=== PATIENT | female | born 1995 | race Hispanic/Latino ===

== ENCOUNTER 2022-08-31 18:16 | Emergency (ER) | payer OTHER ==
--- OUTSIDE RECORDS SUMMARY | 2022-08-31 18:22 | XMS REPORT | Continuity of Care Document ---
:1995 [facility] Organization [facility] t Address [address] [place] [address] Support Name Relationship Address Phone ARMEN DUMONT Unavailable [id number] [place] [address] ARMEN DUMONT Unavailable [address] [phone] 1 [address] [place] [address] No, Contact Unavailable Unavailable J Carlos Shima Parent [address] [place] [address] [place] [address] HIRO BUFFER CHROME, REJI Primary Care Physician [address] [phone] [place] [address] MARCO MAR MD CHONG Emergency Provider [address] [facility] [address] SHEIKH ZAID, LEV Willingham Emergency Provider [facility] [phone] [address] [place] [address] NIKKI MCFADDEN MD Emergency Provider [address] [phone] [place] [address] ARELIS SWAIN MD Emergency Provider [address] [place] [address] MATTY MATSON JR Attending Provider [address] [facility] [place] [address] [place] [address] IVETH SANDHU MD Emergency Provider [address] [facility] [address] [place] [address] ARPITA RAY MD Emergency Provider [address] [place] [address] YOHANNES CEDENO MD Emergency Provider [address] [phone] [place] [address] TONY GIFFORD MD Attending Provider [address] [phone] [place] [address] PHYSICIAN, NO Primary Care Physician Unavailable UnavailDO LEON Phillips Emergency Provider [address] [facility] [email or web address] [id number] MD EDNA IRIZARRY Emergency Provider Unavailable Unavailable MD ARELIS SWAIN Emergency Provider [address] [place] [phone] MD MAYA ORTEZ Emergency Provider [address] [phone] [place] [phone] MD GIOVANNA ASHLEY Emergency Provider [email or web address] [address] DO Radha MARTIN Primary Care Physician [address] [place] [id number] MD GIOVANNY DIMAS Emergency Provider [address] [place] [phone] MD TINO MARTÍNEZ Emergency Provider [address] [place] [id number] Care Team Providers Name Role Phone JADE VOGT Primary Care Physician Unavailable LILLI VILLANUEVA Attending Clinician Unavailable Jonathan_Dee Attending Clinician Unavailable MONISHA BEGUM Attending Clinician Unavailable GIOVANNY DIMAS Attending Clinician Unavailable Page_Parker Attending Clinician Unavailable Abel MAR, Theron Wise Attending Clinician TINO MARTÍNEZ Attending Clinician Unavailable DR JADE VOGT Attending Clinician Unavailable [phone] Attending Clinician Unavailable JADE VOGT Attending Clinician Unavailable GIOVANNA ASHLEY Attending Clinician Unavailable ARELIS SWAIN Attending Clinician Unavailable Radha Turner Attending Clinician Unavailable Immanuel Shanks Attending Clinician Unavailable MAYA ORTEZ Attending Clinician Unavailable CHONG LARA Attending Clinician Unavailable EDNA GEORGE Attending Clinician Unavailable ROC Attending Clinician Unavailable LEON ARZATE Attending Clinician Unavailable RADHA OAKES Attending Clinician Unavailable NIKKI MCFADDEN Attending Clinician Unavailable TONY GIFFORD Attending Clinician Unavailable IVETH SANDHU Attending Clinician Unavailable YOHANNES CEDENO Attending Clinician Unavailable MICHELLE MONTES Attending Clinician Unavailable ARPITA RAY Attending Clinician Unavailable CARISSA DENSON Attending Clinician Unavailable MATTY MATSON Attending Clinician Unavailable LEV KEE Attending Clinician Unavailable ANUSHA GRIFFIN Attending Clinician Unavailable BRADLY CRUZ Attending Clinician Unavailable REJI BOSCH Attending Clinician Unavailable SUNITHA WOLF Attending Clinician Unavailable MARIA INES GARNER Attending Clinician Unavailable RUBEN JORDAN Attending Clinician Unavailable JESUS MARTIN Attending Clinician Unavailable RANDALL SPENCE Attending Clinician Unavailable MAGALY DAMON Attending Clinician Unavailable SOL VALDEZ Attending Clinician Unavailable LEONARDO VALENTIN Attending Clinician Unavailable RENETTA BATISTA Attending Clinician Unavailable FRANCY DAMON Attending Clinician Unavailable Troy PARK Attending Clinician Unavailable VIPIN ANDRADE Attending Clinician Unavailable JONH RODRIGUEZ Attending Clinician Unavailable CARLYLE ZAPATA Attending Clinician Unavailable [place] Admitting Clinician Unavailable Daron Admitting Clinician Unavailable DR JADE VOGT Admitting Clinician Unavailable Physician, No Primary or Family Admitting Clinician Unavailrob [email or web address]_[email or web address] Admitting Clinician Unavailable TONY GIFFORD Admitting Clinician Unavailable MTATY MATSON Admitting Clinician Unavailable RUBEN JORDAN Admitting Clinician Unavailable Payers Payer Name Policy Type Policy Number Effective Date Expiration Date Saritha kingsley LEATHAENE - AMBETTER [id number] FROM [facility] (EPO) CENTENE - AMBETTER [id number] 2021 FROM MANAGED 00:00:00 HEALTH SERVICES - MANAGED HEALTH SERVICES-IN (HMO) LEATHAENE - AMBETTER [id number] FROM [facility] ([place] [id number] 2014 00:00:00 [place] [id number] 2014 [place] (O) 00:00:00 Problems Condition Condition Condition Status Onset Resolution Last Treating Co mments Source Name Details Category Date Date Treatment Clinician Date Depressed Depressed Problem Active [facility] bipolar I Bipolar I 7-20 da disorder Disorder 00:00: [facility] in partial in Partial 00 al remission Remission [facility] Chronic Chronic Problem Active [facility] post-traum Post-traum 6-15 da atic atic 00:00: [facility] stress Stress 00 al disorder Disorder [facility] Cannabis Cannabis Problem Active [facility] abuse Abuse 5-20 da 00:00: [facility] Fibromyalg Fibromyalg Problem Active 2017-08 M atagor ia ia 2-04 da 00:00: [facility] Bipolar Bipolar Problem Active [facility] disorder Disorder 7-30 da 00:00: [facility] Idiopathic Idiopathic Disease Active M ethodi acute acute 5-27 st pancreatit pancreatit 00:00: Ho spita is is 00 l Acute Acute Disease Active Methodi renal renal 5- st failure failure 00:00: Hospita 00 l Dehydratio Dehydratio Disease Active M ethodi n n 5- st 00:00: Hospita 00 l Abdominal Abdominal Disease Active Met hodi pain pain 01-14 st 00:00: Hospita 00 l Lumbar Lumbar Disease Active [facility] radiculiti radiculiti 5-17 st s s 00:00: Hospita 00 l History of History of Disease Active M ethodi lumbar lumbar 5-17 st laminectom laminectom 00:00: Ho spita y for y for 00 l spinal spinal cord cord decompress decompress ion ion Personalit Personalit Problem Active M [facility] y disorder y Disorder da [facility] Allergies, Adverse Reactions, Alerts Allergy Allergy Status Severity Reaction(s) Onset Inactive Treating Comm ents Source Name Type Date Date Clinician No Known DA Active U 2020-08 [facility] No Known DA Active U 2020-08 [facility] No Known DA Active U [facility] No Known DA Active U [facility] All[facility]ie 9 [facility] No Known MA Active UNKNOWN [facility] Morphine Allergy Active Mild to Itching [facility] to moderate da substanc [facility] Family History Family Member Diagnosis Comments Start Date Stop Date Source Natural father No Known Problems Met [facility] Natural mother Cancer [facility] Natural mother Diabetes [facility] Natural mother Hypertension [facility] Natural mother Seizures [facility] Social History Social Habit Start Date Stop Date Quantity Comments Source History of Cigarette Smoker [facility] tobacco use Hospital Alcohol intake 2022-04-07 2022-04-07 [facility] 00:00:00 non-drinker of Hospital alcohol (finding) Tobacco use and 2017-12-30 2017-12-30 User of smokeless [facility] exposure 00:00:00 00:00:00 tobacco Hospital Alcohol Comment 2016-06-02 2016-06-02 0-1 [facility] 00:[facility]:00 Hospital Sex Assigned At [birth year] [facility] 00:[facility]:00 Hospital Smoking Status Start Date Stop Date Source Light Tobacco Smoker [facility] Smokes tobacco daily 2017-12-30 00:00:00 [facility] Medications Ordered Filled Start Stop Current Ordering Indication Dosage Frequency Signature Comments Components Source Medication Medication Date Date Medication? Clinician (SIG) Name Name keTOROlac Yes 10mg Q8H Take 1 Method i (TORadol) 5-22 tablet (10 st 10 mg 00:00: mg total) Hospita tablet 00 by mouth l every 8 (eight) hours as needed for moderate pain for up to 10 doses. keTOROlac 2017-0 Yes 10mg Q8H Take 1 [facility] i (TORadol) 5-22 tablet (10 st 10 mg 00:00: mg total) Hospita tablet 00 by mouth l every 8 (eight) hours as needed for moderate pain for up to 10 doses. keTOROlac 2018-0 Yes 10mg Q8H Take 1 [facility] i (TORadol) 5-22 tablet (10 st 10 mg 00:00: mg total) Hospita tablet 00 by mouth l every 8 (eight) hours as needed for moderate pain for up to 10 doses. keTOROlac 2018-0 Yes 10mg Q8H Take 1 Method i (TORadol) 5-22 tablet (10 st 10 mg 00:00: mg total) Hospita tablet 00 by mouth l every 8 (eight) hours as needed for moderate pain for up to 10 doses. keTOROlac 2018-0 Yes 10mg Q8H Take 1 [facility] i (TORadol) 5-22 tablet (10 st 10 mg 00:00: mg total) Hospita tablet 00 by mouth l every 8 (eight) hours as needed for moderate pain for up to 10 doses. keTOROlac 2018-0 Yes 10mg Q8H Take 1 [facility] i (TORadol) 5-22 tablet (10 st 10 mg 00:00: mg total) Hospita tablet 00 by mouth l every 8 (eight) hours as needed for moderate pain for up to 10 doses. keTOROlac 2018-0 Yes 10mg Q8H Take 1 [facility] i (TORadol) 5-22 tablet (10 st 10 mg 00:00: mg total) Hospita tablet 00 by mouth l every 8 (eight) hours as needed for moderate pain for up to 10 doses. keTOROlac 2018-0 Yes 10mg Q8H Take 1 Method i (TORadol) 5-22 tablet (10 st 10 mg 00:00: mg total) Hospita tablet 00 by mouth l every 8 (eight) hours as needed for moderate pain for up to 10 doses. keTOROlac 2018-0 Yes 10mg Q8H Take 1 Method i (TORadol) 5-22 tablet (10 st 10 mg 00:00: mg total) Hospita tablet 00 by mouth l every 8 (eight) hours as needed for moderate pain for up to 10 doses. keTOROlac 2018-0 Yes 10mg Q8H Take 1 Method i (TORadol) 5-22 tablet (10 st 10 mg 00:00: mg total) Hospita tablet 00 by mouth l every 8 (eight) hours as needed for moderate pain for up to 10 doses. cyclobenzap 2018-0 Yes 10mg Q8H Take 1 Meth le rine 5-06 tablet (10 st (FLEXERIL) 00:00: mg total) Ho spita 10 mg 00 by mouth l tablet every 8 (eight) hours as needed for muscle spasms for up to 20 doses. cyclobenzap 2018-0 Yes 10mg Q8H Take 1 Meth le rine 5-06 tablet (10 st (FLEXERIL) 00:00: mg total) Ho spita 10 mg 00 by mouth l tablet every 8 (eight) hours as needed for muscle spasms for up to 20 doses. cyclobenzap 2018-0 Yes 10mg Q8H Take 1 Meth le rine 5-06 tablet (10 st (FLEXERIL) 00:00: mg total) Ho spita 10 mg 00 by mouth l tablet every 8 (eight) hours as needed for muscle spasms for up to 20 doses. cyclobenzap 2018-0 Yes 10mg Q8H Take 1 Meth le rine 5-06 tablet (10 st (FLEXERIL) 00:00: mg total) Ho spita 10 mg 00 by mouth l tablet every 8 (eight) hours as needed for muscle spasms for up to 20 doses. cyclobenzap 2018-0 Yes 10mg Q8H Take 1 Meth le rine 5-06 tablet (10 st (FLEXERIL) 00:00: mg total) Ho spita 10 mg 00 by mouth l tablet every 8 (eight) hours as needed for muscle spasms for up to 20 doses. cyclobenzap 2018-0 Yes 10mg Q8H Take 1 Meth le rine 5-06 tablet (10 st (FLEXERIL) 00:00: mg total) Ho spita 10 mg 00 by mouth l tablet every 8 (eight) hours as needed for muscle spasms for up to 20 doses. cyclobenzap 2018-0 Yes 10mg Q8H Take 1 Meth le rine 5-06 tablet (10 st (FLEXERIL) 00:00: mg total) Ho spita 10 mg 00 by mouth l tablet every 8 (eight) hours as needed for muscle spasms for up to 20 doses. cyclobenzap 2018-0 Yes 10mg Q8H Take 1 Meth le rine 5-06 tablet (10 st (FLEXERIL) 00:00: mg total) Ho spita 10 mg 00 by mouth l tablet every 8 (eight) hours as needed for muscle spasms for up to 20 doses. cyclobenzap 2018-0 Yes 10mg Q8H Take 1 Meth le rine 5-06 tablet (10 st (FLEXERIL) 00:00: mg total) Ho spita 10 mg 00 by mouth l tablet every 8 (eight) hours as needed for muscle spasms for up to 20 doses. cyclobenzap 2018-0 Yes 10mg Q8H Take 1 Meth le rine 5-06 tablet (10 st (FLEXERIL) 00:00: mg total) Ho spita 10 mg 00 by mouth l tablet every 8 (eight) hours as needed for muscle spasms for up to 20 doses. OXcarbazepi 2016-08 Yes 1200mg Q.5D Take 1,200 Method[facility] ne 1-[address] (TRILEPTAL) 09:13: mouth 2 Hos jason 600 MG 22 (two) l tablet times a day. mirtazapine 2016-08 Yes 15mg QD Take 15 mg [facility]i (REMERON 1-[address] ALYSSIA-TAB) 15 09:13: nightly. Ho spita MG 22 l disintegrat ing tablet ALPRAZolam 2016-08 Yes .25mg QD Take 0.25 M ethodi (XANAX) 1-[address] 0.25 MG 09:13: mouth Hospita tablet 22 nightly as l needed for anxiety. metroNIDAZO 2016-08 Yes 500mg Q.[id number] Take 500 [facility] LE (FLAGYL) 1-10 [id number] mg by s t 500 MG 09:13: 3D mouth 3 Hospita tablet 22 (three) l times a day. vancomycin 2016-08 Yes 250mg Q.25D Take 250 M ethodi (VANCOCIN) 1-[address] 250 MG 09:13: mouth 4 Hospita capsule 22 (four) l times a day. OXcarbazepi 2016-08 Yes 1200mg Q.5D Take 1,200 Methodi ne 1-[address] (TRILEPTAL) 03:13: mouth 2 Hos jason 600 MG 22 (two) l tablet times a day. mirtazapine 2016-08 Yes 15mg QD Take 15 mg Method[facility] (REMERON 1-[address] ALYSSIA-TAB) 15 03:13: nightly. Ho spita MG 22 l disintegrat ing tablet ALPRAZolam 2016-08 Yes .25mg QD Take 0.25 M ethodi (XANAX) 1-[address] 0.25 MG 03:13: mouth Hospita tablet 22 nightly as l needed for anxiety. metroNIDAZO 2016-08 Yes 500mg Q.[id number] Take 500 Method[facility] LE (FLAGYL) 1-10 [id number] mg by s t 500 MG 03:13: 3D mouth 3 Hospita tablet 22 (three) l times a day. vancomycin 2016-08 Yes 250mg Q.25D Take 250 M ethodi (VANCOCIN) 1-[address] 250 MG 03:13: mouth 4 Hospita capsule 22 (four) l times a day. OXcarbazepi 2016-08 Yes 1200mg Q.5D Take 1,200 Methodi ne 1-[address] (TRILEPTAL) 03:13: mouth 2 Hos jason 600 MG 22 (two) l tablet times a day. mirtazapine 2016-08 Yes 15mg QD Take 15 mg [facility] (REMERON 1-[address] ALYSSIA-TAB) 15 03:13: nightly. Ho spita MG 22 l disintegrat ing tablet ALPRAZolam 2016-08 Yes .25mg QD Take 0.25 M ethodi (XANAX) 1-[address] 0.25 MG 03:13: mouth Hospita tablet 22 nightly as l needed for anxiety. metroNIDAZO 2016-08 Yes 500mg Q.[id number] Take 500 [facility] LE (FLAGYL) 1-10 [id number] mg by s t 500 MG 03:13: 3D mouth 3 Hospita tablet 22 (three) l times a day. vancomycin 2016-08 Yes 250mg Q.25D Take 250 M ethodi (VANCOCIN) 1-[address] 250 MG 03:13: mouth 4 Hospita capsule 22 (four) l times a day. OXcarbazepi 2016-08 Yes 1200mg Q.5D Take 1,200 Methodi ne 1-[address] (TRILEPTAL) 03:13: mouth 2 Hos jason 600 MG 22 (two) l tablet times a day. mirtazapine 2016-08 Yes 15mg QD Take 15 mg Method[facility] (REMERON 1-[address] ALYSSIA-TAB) 15 03:13: nightly. Ho spita MG 22 l disintegrat ing tablet ALPRAZolam 2016-08 Yes .25mg QD Take 0.25 M ethodi (XANAX) 1-[address] 0.25 MG 03:13: mouth Hospita tablet 22 nightly as l needed for anxiety. metroNIDAZO 2016-08 Yes 500mg Q.[id number] Take 500 Method[facility] LE (FLAGYL) 1-10 [id number] mg by s t 500 MG 03:13: 3D mouth 3 Hospita tablet 22 (three) l times a day. vancomycin 2016-08 Yes 250mg Q.25D Take 250 M ethodi (VANCOCIN) 1-[address] 250 MG 03:13: mouth 4 Hospita capsule 22 (four) l times a day. OXcarbazepi 2016-08 Yes 1200mg Q.5D Take 1,200 Methodi ne 1-[address] (TRILEPTAL) 03:13: mouth 2 Hos jason 600 MG 22 (two) l tablet times a day. mirtazapine 2016-08 Yes 15mg QD Take 15 mg Method[facility] (REMERON 1-[address] ALYSSIA-TAB) 15 03:13: nightly. Ho spita MG 22 l disintegrat ing tablet ALPRAZolam 2016-08 Yes .25mg QD Take 0.25 M ethodi (XANAX) 1-[address] 0.25 MG 03:13: mouth Hospita tablet 22 nightly as l needed for anxiety. metroNIDAZO 2016-08 Yes 500mg Q.54710897 Take 500 Method[facility] LE (FLAGYL) 1-10 [id number] mg by s t 500 MG 03:13: 3D mouth 3 Hospita tablet 22 (three) l times a day. vancomycin 2016-08 Yes 250mg Q.25D Take 250 M ethodi (VANCOCIN) 1-[address] 250 MG 03:13: mouth 4 Hospita capsule 22 (four) l times a day. OXcarbazepi 2016-08 Yes 1200mg Q.5D Take 1,200 Methodi ne 1-[address] (TRILEPTAL) 03:13: mouth 2 Hos jason 600 MG 22 (two) l tablet times a day. mirtazapine 2016-08 Yes 15mg QD Take 15 mg [facility] (REMERON 1-[address] ALYSSIA-TAB) 15 03:13: nightly. Ho spita MG 22 l disintegrat ing tablet ALPRAZolam 2016-08 Yes .25mg QD Take 0.25 M ethodi (XANAX) 1-[address] 0.25 MG 03:13: mouth Hospita tablet 22 nightly as l needed for anxiety. metroNIDAZO 2016-08 Yes 500mg Q.27708193 Take 500 Method[facility] LE (FLAGYL) 1-10 [id number] mg by s t 500 MG 03:13: 3D mouth 3 Hospita tablet 22 (three) l times a day. vancomycin 2016-08 Yes 250mg Q.25D Take 250 M ethodi (VANCOCIN) 1-[address] 250 MG 03:13: mouth 4 Hospita capsule 22 (four) l times a day. OXcarbazepi 2016-08 Yes 1200mg Q.5D Take 1,200 Methodi ne 1-[address] (TRILEPTAL) 03:13: mouth 2 Hos jason 600 MG 22 (two) l tablet times a day. mirtazapine 2016-08 Yes 15mg QD Take 15 mg Method[facility] (REMERON 1-[address] ALYSSIA-TAB) 15 03:13: nightly. Ho spita MG 22 l disintegrat ing tablet ALPRAZolam 2016-08 Yes .25mg QD Take 0.25 M ethodi (XANAX) 1-[address] 0.25 MG 03:13: mouth Hospita tablet 22 nightly as l needed for anxiety. metroNIDAZO 2016-08 Yes 500mg Q.[id number] Take 500 Methodi LE (FLAGYL) 1-10 [id number] mg by s t 500 MG 03:13: 3D mouth 3 Hospita tablet 22 (three) l times a day. vancomycin 2016-08 Yes 250mg Q.25D Take 250 M ethodi (VANCOCIN) 1-[address] 250 MG 03:13: mouth 4 Hospita capsule 22 (four) l times a day. OXcarbazepi 2016-08 Yes 1200mg Q.5D Take 1,200 Methodi ne 1-[address] (TRILEPTAL) 03:13: mouth 2 Hos jason 600 MG 22 (two) l tablet times a day. mirtazapine 2016-08 Yes 15mg QD Take 15 mg Methodi (REMERON 1-[address] ALYSSIA-TAB) 15 03:13: nightly. Ho spita MG 22 l disintegrat ing tablet ALPRAZolam 2016-08 Yes .25mg QD Take 0.25 M ethodi (XANAX) 1-[address] 0.25 MG 03:13: mouth Hospita tablet 22 nightly as l needed for anxiety. metroNIDAZO 2016-08 Yes 500mg Q.[id number] Take 500 Methodi LE (FLAGYL) 1-10 [id number] mg by s t 500 MG 03:13: 3D mouth 3 Hospita tablet 22 (three) l times a day. vancomycin 2016-08 Yes 250mg Q.25D Take 250 M ethodi (VANCOCIN) 1-[address] 250 MG 03:13: mouth 4 Hospita capsule 22 (four) l times a day. OXcarbazepi 2016-08 Yes 1200mg Q.5D Take 1,200 Methodi ne 1-[address] (TRILEPTAL) 03:13: mouth 2 Hos jason 600 MG 22 (two) l tablet times a day. mirtazapine 2016-08 Yes 15mg QD Take 15 mg Methodi (REMERON 1-[address] ALYSSIA-TAB) 15 03:13: nightly. Ho spita MG 22 l disintegrat ing tablet ALPRAZolam 2016-08 Yes .25mg QD Take 0.25 M ethodi (XANAX) 1-[address] 0.25 MG 03:13: mouth Hospita tablet 22 nightly as l needed for anxiety. metroNIDAZO 2016-08 Yes 500mg Q.[id number] Take 500 Methodi LE (FLAGYL) 1-10 [id number] mg by s t 500 MG 03:13: 3D mouth 3 Hospita tablet 22 (three) l times a day. vancomycin 2016-08 Yes 250mg Q.25D Take 250 M ethodi (VANCOCIN) 1-[address] 250 MG 03:13: mouth 4 Hospita capsule 22 (four) l times a day. OXcarbazepi 2016-08 Yes 1200mg Q.5D Take 1,200 Methodi ne 1-[address] (TRILEPTAL) 03:13: mouth 2 Hos jason 600 MG 22 (two) l tablet times a day. mirtazapine 2016-08 Yes 15mg QD Take 15 mg Methodi (REMERON 1-[address] ALYSSIA-TAB) 15 03:13: nightly. Ho spita MG 22 l disintegrat ing tablet ALPRAZolam 2016-08 Yes .25mg QD Take 0.25 M ethodi (XANAX) 1-[address] 0.25 MG 03:13: mouth Hospita tablet 22 nightly as l needed for anxiety. metroNIDAZO 2016-08 Yes 500mg Q.[id number] Take 500 Methodi LE (FLAGYL) 1-10 [id number] mg by s t 500 MG 03:13: 3D mouth 3 Hospita tablet 22 (three) l times a day. vancomycin 2016-08 Yes 250mg Q.25D Take 250 M ethodi (VANCOCIN) 1-[address] 250 MG 03:13: mouth 4 Hospita capsule 22 (four) l times a day. ondansetron 2016-08 Yes 4mg Q6H Take 1 Meth le ODT (ZOFRAN 0-11 tablet (4 st ODT) 4 MG 00:00: mg total) Hos jason disintegrat 00 by mouth l ing tablet every 6 (six) hours as needed for nausea or vomiting for up to 20 doses. ondansetron 2016-08 Yes 4mg Q6H Take 1 Meth le ODT (ZOFRAN 0-11 tablet (4 st ODT) 4 MG 00:00: mg total) Hos jason disintegrat 00 by mouth l ing tablet every 6 (six) hours as needed for nausea or vomiting for up to 20 doses. ondansetron 2016-08 Yes 4mg Q6H Take 1 Meth le ODT (ZOFRAN 0-11 tablet (4 st ODT) 4 MG 00:00: mg total) Hos jason disintegrat 00 by mouth l ing tablet every 6 (six) hours as needed for nausea or vomiting for up to 20 doses. ondansetron 2016-08 Yes 4mg Q6H Take 1 Meth le ODT (ZOFRAN 0-11 tablet (4 st ODT) 4 MG 00:00: mg total) Hos jason disintegrat 00 by mouth l ing tablet every 6 (six) hours as needed for nausea or vomiting for up to 20 doses. ondansetron 2016-08 Yes 4mg Q6H Take 1 Meth le ODT (ZOFRAN 0-11 tablet (4 st ODT) 4 MG 00:00: mg total) Hos jason disintegrat 00 by mouth l ing tablet every 6 (six) hours as needed for nausea or vomiting for up to 20 doses. ondansetron 2016-08 Yes 4mg Q6H Take 1 Meth le ODT (ZOFRAN 0-11 tablet (4 st ODT) 4 MG 00:00: mg total) Hos jason disintegrat 00 by mouth l ing tablet every 6 (six) hours as needed for nausea or vomiting for up to 20 doses. ondansetron 2017-1 Yes 4mg Q6H Take 1 Meth le ODT (ZOFRAN 0-11 tablet (4 st ODT) 4 MG 00:00: mg total) Hos jason disintegrat 00 by mouth l ing tablet every 6 (six) hours as needed for nausea or vomiting for up to 20 doses. ondansetron 2017-1 Yes 4mg Q6H Take 1 Meth le ODT (ZOFRAN 0-11 tablet (4 st ODT) 4 MG 00:00: mg total) Hos jason disintegrat 00 by mouth l ing tablet every 6 (six) hours as needed for nausea or vomiting for up to 20 doses. ondansetron 2017-1 Yes 4mg Q6H Take 1 Meth le ODT (ZOFRAN 0-11 tablet (4 st ODT) 4 MG 00:00: mg total) Hos jason disintegrat 00 by mouth l ing tablet every 6 (six) hours as needed for nausea or vomiting for up to 20 doses. ondansetron 2017-1 Yes 4mg Q6H Take 1 Meth le ODT (ZOFRAN 0-11 tablet (4 st ODT) 4 MG 00:00: mg total) Hos jason disintegrat 00 by mouth l ing tablet every 6 (six) hours as needed for nausea or vomiting for up to 20 doses. promethazin 2017-0 Yes 25mg Q6H Take 1 Meth le e 8-09 tablet (25 st (PHENERGAN) 00:00: mg total) H ospita 25 MG 00 by mouth l tablet every 6 (six) hours as needed for nausea or vomiting for up to 20 doses. promethazin 2017-0 Yes 25mg Q6H Take 1 Meth le e 8-09 tablet (25 st (PHENERGAN) 00:00: mg total) H ospita 25 MG 00 by mouth l tablet every 6 (six) hours as needed for nausea or vomiting for up to 20 doses. promethazin 2017-0 Yes 25mg Q6H Take 1 Meth le e 8-09 tablet (25 st (PHENERGAN) 00:00: mg total) H ospita 25 MG 00 by mouth l tablet every 6 (six) hours as needed for nausea or vomiting for up to 20 doses. promethazin 2017-0 Yes 25mg Q6H Take 1 Meth le e 8-09 tablet (25 st (PHENERGAN) 00:00: mg total) H ospita 25 MG 00 by mouth l tablet every 6 (six) hours as needed for nausea or vomiting for up to 20 doses. promethazin 2017-0 Yes 25mg Q6H Take 1 Meth le e 8-09 tablet (25 st (PHENERGAN) 00:00: mg total) H ospita 25 MG 00 by mouth l tablet every 6 (six) hours as needed for nausea or vomiting for up to 20 doses. promethazin 2017-0 Yes 25mg Q6H Take 1 Meth le e 8-09 tablet (25 st (PHENERGAN) 00:00: mg total) H ospita 25 MG 00 by mouth l tablet every 6 (six) hours as needed for nausea or vomiting for up to 20 doses. promethazin 2017-0 Yes 25mg Q6H Take 1 Meth le e 8-09 tablet (25 st (PHENERGAN) 00:00: mg total) H ospita 25 MG 00 by mouth l tablet every 6 (six) hours as needed for nausea or vomiting for up to 20 doses. promethazin 2017-0 Yes 25mg Q6H Take 1 Meth le e 8-09 tablet (25 st (PHENERGAN) 00:00: mg total) H ospita 25 MG 00 by mouth l tablet every 6 (six) hours as needed for nausea or vomiting for up to 20 doses. promethazin 2017-0 Yes 25mg Q6H Take 1 Meth le e 8-09 tablet (25 st (PHENERGAN) 00:00: mg total) [facility] 25 MG 00 by mouth l tablet every 6 (six) hours as needed for nausea or vomiting for up to 20 doses. promethazin 2017-0 Yes 25mg Q6H Take 1 Meth le e 8-09 tablet (25 st (PHENERGAN) 00:00: mg total) [facility] 25 MG 00 by mouth l tablet every 6 (six) hours as needed for nausea or vomiting for up to 20 doses. benztropine benztropine No 1 Q1D benztropin [place] 1 mg tablet 1 mg tablet e 1 mg da Take 1 Take 1 tablet [facility] tablet tablet Take 1 al every day every day tablet Hea lth by oral by oral every day Outr eac route in route in by oral h the the route in Program morning. morning. the morning. bupropion bupropion No bupropion [place] HCl XL 150 HCl XL 150 HCl XL 150 da mg 24 hr mg 24 hr mg 24 hr Epi scop tablet, tablet, tablet, al extended extended extended Hea lth release TK release TK release TK Outreac 1 T PO QD 1 T PO QD 1 T PO QD h Program buspirone buspirone No 1 BID buspirone [place] 10 mg 10 mg 10 mg da tablet Take tablet Take tablet [facility] 1 tablet 1 tablet Take 1 al twice a day twice a day tablet Health by oral by oral twice a Outrea c route with route with day by h meals. meals. oral route Progr am with meals. hydroxyzine hydroxyzine No 1 Q6H hydroxyzin [place] HCl 50 mg HCl 50 mg e HCl 50 d a tablet Take tablet Take mg tablet [facility] 1 tablet 1 tablet Take 1 al every 6 every 6 tablet Health hours by hours by every 6 Outr eac oral route oral route hours by h as needed. as needed. oral route Program as needed. hydroxyzine hydroxyzine No hydroxyzin [place] pamoate 50 pamoate 50 e pamoate da mg capsule mg capsule 50 mg [facility] capsule al Health Outreac h Program ibuprofen ibuprofen No ibuprofen [place] 600 mg 600 mg 600 mg da tablet tablet tablet [facility] ParaGard T ParaGard T No 1device ParaGard T [place] 380A 380 380A 380 (s) 380A 380 da square mm square mm square mm [facility] intrauterin intrauterin intrauteri al e device e device ne device He alth Take 1 Take 1 Take 1 Outreac device by device by device by h intrauterin intrauterin intrauteri Program e route. e route. ne route. quetiapine quetiapine No 1 Q1D quetiapine [place] 100 mg 100 mg 100 mg da tablet Take tablet Take tablet [facility] 1 tablet 1 tablet Take 1 al every day every day tablet Hea [facility]th by oral by oral every day Outr eac route at route at by oral h bedtime. bedtime. route at Pro gram bedtime. quetiapine quetiapine No 1 Q1D quetiapine [place] 25 mg 25 mg 25 mg da tablet Take tablet Take tablet [facility] 1 tablet 1 tablet Take 1 al every day every day tablet [facility]a [facility]th by oral by oral every day Outr eac route in route in by oral h the the route in Program morning. morning. the morning. tramadol 50 tramadol 50 No tramadol [place] mg tablet mg tablet 50 mg da tablet [facility] trazodone trazodone No 1 Q1D trazodone [place] 100 mg 100 mg 100 mg da tablet Take tablet Take tablet [facility] 1 tablet 1 tablet Take 1 al every day every day tablet [facility]a [facility]th by oral by oral every day Outr eac route at route at by oral h bedtime. bedtime. route at Pro gram bedtime. 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 coordinator Index) [facility] BP Systolic 2019-12-24 00:00:00 108 mm[Hg] [place] [facility] Body Weight 2019-12-24 00:00:00 138 [lb_av] [place] [facility] BP Diastolic 2019-12-10 00:00:00 60 mm[Hg] [place] [facility] Height 2019-12-10 00:00:00 64 [in_i] [place] [facility] BMI (Body Mass 2019-12-10 00:00:00 22.8 kg/m2 [facility] head start coordinator Index) [facility] BP Systolic 2019-12-10 00:00:00 96 mm[Hg] [place] [facility] Body Weight 2019-12-10 00:00:00 133 [lb_av] [place] [facility] BP Diastolic 2019-09-01 00:00:00 75 mm[Hg] [place] [facility] Height 2019-09-01 00:00:00 64 [in_i] [place] [facility] BMI (Body Mass 2019-09-01 00:00:00 22.5 kg/m2 [place] head start coordinator Index) [facility] BP Systolic 2019-09-01 00:00:00 110 mm[Hg] [place] [facility] Body Weight 2019-09-01 00:00:00 131 [lb_av] [place] [facility] BP Diastolic 2019-08-07 00:00:00 67 mm[Hg] [place] [facility] Height 2019-08-07 00:00:00 64 [in_i] [place] [facility] BMI (Body Mass 2019-08-07 00:00:00 22.8 kg/m2 [place] head start coordinator Index) [facility] BP Systolic 2019-08-07 00:00:00 101 mm[Hg] [place] [facility] Body Weight 2019-08-07 00:00:00 133 [lb_av] [place] [facility] BP Diastolic 2019-07-08 00:00:00 79 mm[Hg] [place] [facility] Height 2019-07-08 00:00:00 64 [in_i] [place] [facility] BMI (Body Mass 2019-07-08 00:00:00 22.7 kg/m2 [place] head start coordinator Index) [facility] BP Systolic 2019-07-08 00:00:00 113 mm[Hg] [place] [facility] Body Weight 2019-07-08 00:00:00 132 [lb_av] [place] [facility] BP Diastolic 2019-06-23 00:00:00 72 mm[Hg] [place] [facility] Height 2019-06-23 00:00:00 64 [in_i] [place] [facility] BMI (Body Mass 2019-06-23 00:00:00 [facility]3 [facility] BP Systolic 2019-06-23 00:00:00 129 mm[Hg] [place] [facility] Body Weight 2019-06-23 00:00:00 130 [lb_av] [place] [facility] BP Diastolic 2019-06-06 00:00:00 69 mm[Hg] [place] [facility] Height 2019-06-06 00:00:00 64 [in_i] [place] [facility] BMI (Body Mass 2019-06-06 00:00:00 22.5 kg/m2 [facility] head start coordinator Index) [facility] BP Systolic 2019-06-06 00:00:00 105 mm[Hg] [place] [facility] Body Weight 2019-06-06 00:00:00 131 [lb_av] [place] [facility] Body height 2022-04-07 17:41:00 157.5 cm [facility] Body weight 2022-04-07 17:41:00 53.071 kg [facility] BMI 2022-04-07 17:41:00 21.40 kg/m2 [facility] Systolic blood 2022-04-07 17:33:47 103 mm[Hg] [facility] pressure Diastolic blood 2022-04-07 17:33:47 74 mm[Hg] [facility] pressure Heart rate 2022-04-07 17:33:47 95 /min [facility] Body temperature 2022-04-07 17:33:47 37.5 It[facility] Respiratory rate 2022-04-07 17:33:47 16 /min [facility] Oxygen saturation in 2022-04-07 17:33:47 98 /min [facility] Arterial blood by Pulse oximetry Procedures Procedure Date / Time Performing Clinician Source Performed CT RENAL STONE PROTOCOL 2022-04-07 18:52:26 [facility] URINE CULTURE 2022-04-07 17:57:00 [facility] URINALYSIS SCREEN AND 2022-04-07 17:57:00 [facility] MICROSCOPY, WITH REFLEX TO CULTURE HCG QUALITATIVE, URINE 2022-04-07 17:57:00 [facility] SCREEN CBC WITH PLATELET AND 2022-04-07 17:55:00 [facility] DIFFERENTIAL BASIC METABOLIC PANEL 2022-04-07 17:55:00 [facility] ESTIMATED GFR 2022-04-07 17:55:00 [facility], transvaginal 2019-12-24 00:00:00 [facility] , transvaginal 2019-08-07 00:00:00 [facility] 2019-06-23 00:00[facility]00 [facility] Cholecystectomy 2016-08-27 00:00:00 [facility] Exploratory Lumbar 2015-08-27 00:00:00 [facility] Plan of Care Planned Activity Planned Date Details Comments Source Future Scheduled Test 2022-08-18 Pneumococcal Vaccine: [facility] 03:02:32 Pediatrics (0 to 5 Years) and At-Risk Patients (6 to 64 Years) (1 - PCV) [code = Pneumococcal Vaccine: Pediatrics (0 to 5 Years) and At-Risk Patients (6 to 64 Years) (1 - PCV)] Future Scheduled Test 2022-08-18 Hepatitis C screening [facility] 03:02:32 (procedure) [code = 515899098] Future Scheduled Test 2022-08-18 Screening for [facility] 03:02:32 malignant neoplasm of cervix (procedure) [code = 520385800] Future Scheduled Test 2022-08-18 COVID-19 VACCINE ([address] [place] [address] 03:02:32 Booster for Pfizer series) [code = COVID-19 VACCINE (3 - Booster for Pfizer series)] Future Scheduled Test 2022-08-18 INFLUENZA VACCINE [facility] 03:02:32 [code = INFLUENZA VACCINE] Future Scheduled Test 2022-08-18 Pneumococcal Vaccine: [facility] 03:02:32 Pediatrics (0 to 5 Years) and At-Risk Patients (6 to 64 Years) (1 - PCV) [code = Pneumococcal Vaccine: Pediatrics (0 to 5 Years) and At-Risk Patients (6 to 64 Years) (1 - PCV)] Future Scheduled Test 2022-08-18 Hepatitis C screening [facility] 03:02:32 (procedure) [code = [id number]] Future Scheduled Test 2022-08-18 Screening for [facility] 03:02:32 malignant neoplasm of cervix (procedure) [code = 993443902] Future Scheduled Test 2022-08-18 COVID-19 VACCINE ([address] [place] [address] 03:02:32 Booster for Pfizer series) [code = COVID-19 VACCINE (3 - Booster for Pfizer series)] Future Scheduled Test 2022-08-18 INFLUENZA VACCINE [facility] 03:02:32 [code = INFLUENZA VACCINE] Future Scheduled Test 2022-08-18 Pneumococcal Vaccine: [facility] 03:02:32 Pediatrics (0 to 5 Years) and At-Risk Patients (6 to 64 Years) (1 - PCV) [code = Pneumococcal Vaccine: Pediatrics (0 to 5 Years) and At-Risk Patients (6 to 64 Years) (1 - PCV)] Future Scheduled Test 2022-08-18 Hepatitis C screening [facility] 03:02:32 (procedure) [code = [id number]] Future Scheduled Test 2022-08-18 Screening for [facility] 03:02:32 malignant neoplasm of cervix (procedure) [code = 691899927] Future Scheduled Test 2022-08-18 COVID-19 VACCINE ([address] [place] [address] 03:02:32 Booster for Pfizer series) [code = COVID-19 VACCINE (3 - Booster for Pfizer series)] Future Scheduled Test 2022-08-18 INFLUENZA VACCINE [facility] 03:02:32 [code = INFLUENZA VACCINE] Future Scheduled Test 2022-06-30 HEPATITIS B VACCINES [facility] 04:56:39 (1 of 3 - 3-dose series) [code = HEPATITIS B VACCINES (1 of 3 - 3-dose series)] Future Scheduled Test 2022-06-30 Pneumococcal Vaccine: [facility] 04:56:39 Pediatrics (0 to 5 Years) and At-Risk Patients (6 to 64 Years) (1 - PCV) [code = Pneumococcal Vaccine: Pediatrics (0 to 5 Years) and At-Risk Patients (6 to 64 Years) (1 - PCV)] Future Scheduled Test 2022-06-30 Hepatitis C screening [facility] 04:56:39 (procedure) [code = 097043177] Future Scheduled Test 2022-06-30 Screening for [facility] 04:56:39 malignant neoplasm of cervix (procedure) [code = 072922809] Future Scheduled Test 2022-06-30 COVID-19 VACCINE (3 - [facility] 04:56:39 Booster for Pfizer series) [code = COVID-19 VACCINE (3 - Booster for Pfizer series)] Future Scheduled Test 2022-06-30 INFLUENZA VACCINE [facility] 04:56:39 [code = INFLUENZA VACCINE] Future Scheduled Test 2022-06-30 HEPATITIS B VACCINES [facility] 04:56:39 (1 of 3 - 3-dose series) [code = HEPATITIS B VACCINES (1 of 3 - 3-dose series)] Future Scheduled Test 2022-06-30 Pneumococcal Vaccine: [facility] 04:56:39 Pediatrics (0 to 5 Years) and At-Risk Patients (6 to 64 Years) (1 - PCV) [code = Pneumococcal Vaccine: Pediatrics (0 to 5 Years) and At-Risk Patients (6 to 64 Years) (1 - PCV)] Future Scheduled Test 2022-06-30 Hepatitis C screening [facility] 04:56:39 (procedure) [code = 022901243] Future Scheduled Test 2022-06-30 Screening for [facility] 04:56:39 malignant neoplasm of cervix (procedure) [code = 114749161] Future Scheduled Test 2022-06-30 COVID-19 VACCINE (3 - [facility] 04:56:39 Booster for Pfizer series) [code = COVID-19 VACCINE (3 - Booster for Pfizer series)] Future Scheduled Test 2022-06-30 INFLUENZA VACCINE [facility] 04:56:39 [code = INFLUENZA VACCINE] Future Scheduled Test 2022-05-11 INFLUENZA VACCINE [facility] 22:34:57 [code = INFLUENZA VACCINE] Future Scheduled Test 2022-05-11 HEPATITIS B VACCINES [facility] 22:34:57 (1 of 3 - 3-dose series) [code = HEPATITIS B VACCINES (1 of 3 - 3-dose series)] Future Scheduled Test 2022-05-11 Pneumococcal Vaccine: [facility] 22:34:57 Pediatrics (0 to 5 Years) and At-Risk Patients (6 to 64 Years) (1 - PCV) [code = Pneumococcal Vaccine: Pediatrics (0 to 5 Years) and At-Risk Patients (6 to 64 Years) (1 - PCV)] Future Scheduled Test 2022-05-11 Hepatitis C screening [facility] 22:34:57 (procedure) [code = [id number]] Future Scheduled Test 2022-05-11 Screening for Metho [facility] [place] [place] 22:34:57 malignant neoplasm of cervix (procedure) [code = 847484608] Future Scheduled Test 2022-05-11 COVID-19 VACCINE (3 - [facility] 22:34:57 Booster for Pfizer series) [code = COVID-19 VACCINE (3 - Booster for Pfizer series)] Future Scheduled Test 2022-05-11 INFLUENZA VACCINE [facility] 22:34:57 [code = INFLUENZA VACCINE] Future Scheduled Test 2022-05-11 HEPATITIS B VACCINES [facility] 22:34:57 (1 of 3 - 3-dose series) [code = HEPATITIS B VACCINES (1 of 3 - 3-dose series)] Future Scheduled Test 2022-05-11 Pneumococcal Vaccine: [facility] 22:34:57 Pediatrics (0 to 5 Years) and At-Risk Patients (6 to 64 Years) (1 - PCV) [code = Pneumococcal Vaccine: Pediatrics (0 to 5 Years) and At-Risk Patients (6 to 64 Years) (1 - PCV)] Future Scheduled Test 2022-05-11 Hepatitis C screening [facility] 22:34:57 (procedure) [code = 567947232] Future Scheduled Test 2022-05-11 Screening for Metho [facility] [place] [place] 22:34:57 malignant neoplasm of cervix (procedure) [code = 935901537] Future Scheduled Test 2022-05-11 COVID-19 VACCINE (3 - [facility] 22:34:57 Booster for Pfizer series) [code = COVID-19 VACCINE (3 - Booster for Pfizer series)] Future Scheduled Test 2022-05-11 INFLUENZA VACCINE [facility] 22:34:57 [code = INFLUENZA VACCINE] Future Scheduled Test 2022-05-11 HEPATITIS B VACCINES [facility] 22:34:57 (1 of 3 - 3-dose series) [code = HEPATITIS B VACCINES (1 of 3 - 3-dose series)] Future Scheduled Test 2022-05-11 Pneumococcal Vaccine: [facility] 22:34:57 Pediatrics (0 to 5 Years) and At-Risk Patients (6 to 64 Years) (1 - PCV) [code = Pneumococcal Vaccine: Pediatrics (0 to 5 Years) and At-Risk Patients (6 to 64 Years) (1 - PCV)] Future Scheduled Test 2022-05-11 Hepatitis C screening [facility] 22:34:57 (procedure) [code = 683006129] Future Scheduled Test 2022-05-11 Screening for Metho [facility] [place] [place] 22:34:57 malignant neoplasm of cervix (procedure) [code = 606194180] Future Scheduled Test 2022-05-11 COVID-19 VACCINE (3 - [facility] 22:34:57 Booster for Pfizer series) [code = COVID-19 VACCINE (3 - Booster for Pfizer series)] Future Scheduled Test 2022-05-11 INFLUENZA VACCINE [facility] 22:34:57 [code = INFLUENZA VACCINE] Future Scheduled Test 2022-05-11 HEPATITIS B VACCINES [facility] 22:34:57 (1 of 3 - 3-dose series) [code = HEPATITIS B VACCINES (1 of 3 - 3-dose series)] Future Scheduled Test 2022-05-11 Pneumococcal Vaccine: [facility] 22:34:57 Pediatrics (0 to 5 Years) and At-Risk Patients (6 to 64 Years) (1 - PCV) [code = Pneumococcal Vaccine: Pediatrics (0 to 5 Years) and At-Risk Patients (6 to 64 Years) (1 - PCV)] Future Scheduled Test 2022-05-11 Hepatitis C screening [facility] 22:34:57 (procedure) [code = 376654490] Future Scheduled Test 2022-05-11 Screening for Metho [facility] [place] [place] 22:34:57 malignant neoplasm of cervix (procedure) [code = 627125193] Future Scheduled Test 2022-05-11 COVID-19 VACCINE (3 - [facility] 22:34:57 Booster for Pfizer series) [code = COVID-19 VACCINE (3 - Booster for Pfizer series)] Future Scheduled Test COVID-19 VACCINE (1) [facility] [code = COVID-19 VACCINE (1)] Future Scheduled Test Screening for [facility] malignant neoplasm of cervix (procedure) [code = 786244700] Future Scheduled Test INFLUENZA VACCINE [facility] [code = INFLUENZA VACCINE] Instructions [facility] Encounters Start End Encounter Admission Attending Care Care Encounter Source Date/Time Date/Time Type Type Clinicians Facility Department ID 2021-11-14 Outpatient ELCAMPO ELCAMPO [id number] El 16:18:29 [id number] Terri [facility] 2022-08-18 2022-08-18 Emergency ER LANGHORN, [facility] [id number] [place] 08:24:00 13:00:00 LILLI -[id number] [facility] 2022-08-14 2022-08-14 Outpatient Rutledge_L [facility] [id number] [place] 00:00:00 00:00:00 219 [facility] 2022-07-28 2022-07-28 Emergency ER STONE, [facility] [id number] [place] 06:00:00 07:26:00 MONISHA -[id number] [facility] 2022-06-28 2022-06-28 Emergency ER DIMAS, [facility] [id number] [place] 16:59:00 18:00:00 GIOVANNY -[id number] [facility] 2022-05-22 2022-05-22 Outpatient Raju_P [facility] G [id number] [place] 00:00:00 00:00:00 926 [facility] 2022-04-21 2022-04-21 Outpatient Raju_P MMG MMG [id number] [place] 00:00:00 00:00:00 826 [facility] 2022-04-07 2022-04-07 Emergency Abel, 1.2.840.1 [id number] [facility] 12:34:00 15:18:[address] 3.430.2.7 Hospit a .3.524607 l .8 2022-04-07 2022-04-07 Emergency Abel, Johanne.2.840.1 [id number] [facility] 12:34:00 15:18:00 Theron Wise [address]1.[address] 3.430.2.7 Hospit a .3.965833 l .8 2022-02-22 2022-02-22 Emergency ER TANYA, [facility] [id number] [place] 12:24:00 16:01:00 TINO -[id number] [facility] 2022-01-31 2022-01-31 Outpatient Raju_P G [facility] [id number] [place] 12:59:00 12:59:00 607 Medical [facility] 2021-11-14 2021-11-14 Emergency ER TANYA, [facility] [id number] [place] 20:06:00 22:08:00 TINO -[id number] [facility] 2021-11-14 2021-11-14 Outpatient [facility] [id number] 16:23:00 16:56:00 [id number] [facility] 2021-10-23 2021-10-23 Emergency ER DIMAS, [facility] [id number] [place] 09:15:00 10:58:00 GIOVANNY -[id number] [facility] 2021-10-13 2021-10-13 Outpatient TORIE [facility] D00 [id number] [place] 10:59:00 10:59:00 -[id number] [facility] 2021-10-05 2021-10-05 Emergency ER GABI, [facility] [id number] [place] 17:53:00 22:10:00 GIOVANNA [id number] [facility] 2021-08-24 2021-08-24 Emergency ER BRYNN [facility] [id number] [place] 09:59:00 14:14:00 ARELIS [id number] [facility] 2021-06-15 2021-06-15 Inpatient EM Turner, [facility] [id number] [facility] 13:47:00 15:15:00 Omirta 31 [facility] 2021-05-08 2021-05-08 Emergency EM Jaimewan, [facility] [id number] [facility] 10:32:00 14:33:00 Immanuel 40 [facility] 2021-05-08 2021-05-08 Emergency EM Radwan, [facility] [id number] [facility] 10:32:00 14:33:00 Immanuel 40 [facility] 2021-01-28 2021-01-28 Emergency ER NEELIMA, [facility] [id number] [place] 15:07:00 16:18:00 MAYA -[id number] [facility] 2021-01-04 2021-01-04 Emergency ER BRYNN, [facility] [id number] [place] 09:17:00 10:02:00 ARELIS -[id number] [facility] 2020-12-20 2020-12-20 Emergency ER BRANDENE, [facility] [id number] [place] 13:56:00 18:33:00 CHONG -[id number] [facility] 2020-10-31 2020-10-31 Emergency ER GEORGE, [facility] [id number] [place] 10:07:00 12:02:00 EDNA -[id number] [facility] 2020-09-15 2020-09-15 Outpatient LISTER_MELI MEHOP [facility] 918 [place] 04:35:00 04:35:00 [facility] 2020-08-26 2020-08-26 Outpatient LISTER_MELI MEHOP NDHOP 918 [place] 01:03:00 01:03:00 SSA 1231 [facility] 2020-08-11 2020-08-11 Outpatient LISTER_MELI MEHOP MEHOP 918 [place] 04:45:00 04:45:00 SSA 1228 [facility] 2020-06-17 2020-06-17 Emergency ER SAIFI, [facility] [id number] [place] 20:24:00 22:57:00 [facility] -[id number] [facility] 2020-06-10 2020-06-10 Emergency ER OWO, TOKS [facility] [id number] [place] 17:01:00 18:30:00 -[id number] [facility] 2020-05-12 2020-05-12 Outpatient Raju_P MMG MMG [id number] [place] 11:10:00 11:10:00 916 [facility] 2020-05-12 2020-05-12 Outpatient LISTER_MELI MEHOP MEHOP 918 [place] 11:04:00 11:04:00 SSA 0916 [facility] 2020-05-10 2020-05-10 Emergency ER OWO, TOKS [facility] [id number] [place] 09:02:00 15:00:00 -[id number] [facility] 2020-04-07 2020-04-07 Outpatient LISTER_MELI MEHOP MEHOP 918 [place] 01:08:00 01:08:00 SSA 0812 [facility] 2020-03-15 2020-03-15 Outpatient LISTER_MELI MEHOP MEHOP 918 [place] 04:47:00 04:47:00 SSA 0720 [facility] 2020-03-15 2020-03-15 [facility] [place] - [id number] M [facility] 00:00:00 00:00:00 Matt Wilkins MD: [facility] 1700 HOP - NDMARY [place] [facility] [address] Shalom holliday , Ph. [phone] 2020-03-05 Outpatient LISTER_MELI MEHOP MEHOP 918 [place] 12:26:00 12:26:00 SSA 0710 [facility] 2020-03-05 2020-03-05 Abhijit CANTU [place] - [id number] [facility] 00:00:00 00:00:00 Charan Reed da PSYD: 1700 [facility] [address] [facility] , Ph. Program ([phone]) -20072020-03-03 2020-03-03 Outpatient LISTER_MELI MEHOP MEHOP [id number] [place] 01:21:00 01:21:00 SSA 0708 [facility] 2020-02-21 2020-02-21 Outpatient LISTER_MELI MEHOP MEHOP 918 [place] 11:32:00 11:32:00 SSA 0627 [facility] 2020-02-20 2020-02-20 Outpatient LISTER_MELI MEHOP MEHOP 918 [place] 05:13:00 05:13:00 SSA 0626 [facility] 2020-02-20 2020-02-20 Abhijit Adames [place] - [id number] [place] 00:00:00 00:00:00 Charan Reed da PSYD: 1700 Yarsani Epi scop [address], [facility] [phone] h , Ph. Program (979) 2020-02-09 2020-02-09 Outpatient LISTER_MELI MEHOP MEHOP 918 [place] 02:58:00 02:58:00 [facility] 2020-02-09 2020-02-09 Abhijit Rosangela [place] - [id number] M at[place] 00:00:00 00:00:00 Charan Reed da PSYD: 1700 Yarsani [facility] scop [facility] [address] [facility] , Ph. Program (979) -20072020-02-02 2020-02-02 Outpatient LISTER_MELI MEHOP MEHOP 918 [place] 03:55:00 03:55:00 SSA 0608 [facility] 2020-02-02 2020-02-02 Abhijit Adames [place] - [id number] M [place] 00:00:00 00:00:00 Charan Reed da PSYD: 1700 Yarsani Epi scop [address], [facility]re [address] h , Ph. Program (979) --20072020-01-27 2020-01-27 Outpatient LISTER_MELI MEHOP MEHOP 918 [place] 12:44:00 12:44:00 SSA 0602 [facility] 2020-01-21 2020-01-21 Outpatient LISTER_MELI MEHOP MEHOP 918 [place] 04:03:00 04:03:00 SSA 0527 [facility] 2020-01-21 2020-01-21 Abhijit Rosangela [place] - [id number] M [place] 00:00:00 00:00:00 Charan Reed da PSYD: 1700 Yarsani Epi scop [address], [facility]re [address] h , Ph. Program (979) --20072020-01-14 2020-01-14 Outpatient LISTER_MELI MEHOP MEHOP 918 [place] 04:00:00 04:00:00 SSA 0520 [facility] 2020-01-14 2020-01-14 Abhijit Rosangela [place] - [id number] M [place] 00:00:00 00:00:00 Charan Reed da PSYD: 1700 Yarsani Epi scop [address], [facility] Outre [address] h , Ph. Program (979) --20072019-12-24 2019-12-24 Outpatient LISTER_MELI MEHOP MEHOP 918 [place] 03:50:00 03:50:00 SSA 0429 [facility] 2019-12-24 2019-12-24 Michelle CANTU [place] - [id number] M [place] 00:00:00 00:00:00 Swapna Charan Arreola, Yarsani Episco p BUFFER CHROME: [address], [place] [facility] [address] Shalom am , Ph. 2019-12-23 2019-12-23 Outpatient SIMON_YAZMINI MEHOP MEHOP 918 [place] 02:10:00 02:10:00 SSA 0428 [facility] 2019-12-22 2019-12-22 Emergency ER BOGDAN, [facility] [id number] [place] 16:42:00 22:40:00 NIKKI [id number] mirtha [facility] 2019-12-10 2019-12-10 Outpatient SIMON_YAZMINI MEHOP NDHOP 918 [place] 06:00:00 06:00:00 SSA 0415 [facility] 2019-12-10 2019-12-10 Carissa [facility] [place] - [id number] M [place] 00:00:00 00:00:00 Charan Denson MD: 1700 Yarsani Episc op Lewis [facility] al Av, [place] Outre [address] h , Ph. Program 2019-10-02 2019-10-02 Emergency ER BRYNN, [facility] [id number] [place] 21:56:00 23:51:00 ARELIS [id number] [facility] 2019-09-01 2019-09-01 Outpatient SIMON_YAZMINI MEHOP NDHOP 91 [place] 11:30:00 11:30:00 SSA 0106 [facility] 2019-09-01 2019-09-01 Michelle [facility] [place] - [id number] M [place] 00:00:00 00:00:00 Swapna Charan Arreola, Yarsani Episco p BUFFER CHROME: [address], [place] [facility] [phone] Shalom , Ph. 2019-08-072019-08-07 Michelle CANTU [place] - [id number] [place] 00:00:00 00:00:00 Swapna Arreola, Yarsani Episco p BUFFER CHROME: [address], [facility] [place] [address] Progr am , Ph. 2019-07-08 2019-07-08 Michelle CANTU [place] - [id number] M [place] 00:00:00 00:00:00 Swapna Arreola, Yarsani Episco p BUFFER CHROME: [address], [facility] [place] [phone] Progr am , Ph. 2019-06-23 2019-06-23 Michelle CANTU [place] - [id number] [place] 00:00:00 00:00:00 Swapna Arreola, Yarsani Episco p BUFFER CHROME: [address], [facility] [place] [phone] Progr am , Ph. 2019-06-06 2019-06-06 Brady Rodriguez [facility] [place] - [id number] [place] 00:00:00 00:00:00 MD Epi: Charan willingham [id number] Yarsani Episc op [address] [facility] [address] [phone] , Ph. 2019-02-08 2019-02-10 Inpatient ER BALTA, [facility] MED [id number] [place] 15:03:00 14:18:00 TONY -[id number] [facility] 2018-12-07 2018-12-07 Emergency ER MARCO, [facility] [id number] [place] 12:01:00 14:35:00 CHONG -[id number] [facility] 2018-12-04 2018-12-05 Emergency ER EDSON, [facility] [id number] [place] 23:21:00 02:49:00 IVETH -[id number] [facility] 2018-10-25 2018-10-25 Emergency ER EDSON, [facility] [id number] [place] 12:41:00 13:26:00 IVETH -[id number] [facility] 2018-09-12 2018-09-12 Emergency ER WILIAN, [facility] [id number] [place] 03:48:00 05:50:00 YOHANNES -[id number] [facility] 2018-08-16 2018-08-16 Outpatient EL SIMON, [facility] [id number] [place] 10:19:00 10:19:00 MICHELLE -[id number] [facility] 2018-08-13 2018-08-13 Emergency ER CORY, [facility] [id number] [place] 15:22:00 17:10:00 ARPITA -[id number] [facility] 2018-08-05 2018-08-05 Emergency ER EDSON, [facility] [id number] [place] 22:13:00 22:52:00 IVETH -[id number] [facility] 2018-07-31 2018-07-31 Outpatient EL AVILA, [facility] [id number] [place] 09:29:00 09:29:00 CARISSA -[id number] [facility] 2018-07-16 2018-07-18 Inpatient ER DANO, [facility] [id number] [place] 16:24:00 13:03:00 MATTY -[id number] [facility] 2018-07-09 2018-07-09 Emergency ER GIANNONE, [facility] [id number] [place] 03:31:00 04:07:00 CHONG -[id number] [facility] 2018-06-19 2018-06-19 Emergency ER IRUKE, [facility] [id number] 51 [place] 02:31:00 04:30:00 NIKKI -[id number] mirtha a [facility] 2018-06-09 2018-06-09 Emergency ER KEE, [facility] [id number] 51 [place] 00:42:00 02:21:00 LEV -[id number] [facility] 2018-05-17 2018-05-17 Emergency ER GIANNONE, [facility] [id number] [place] 16:18:00 18:22:00 CHONG -[id number] [facility] 2018-04-20 2018-04-21 Emergency ER BOGDAN, [facility] [id number] 51 [place] 23:12:00 01:21:00 NIKKI -[id number] d a [facility] 2018-03-13 2018-03-13 Emergency ER UGORARYA, [facility] [id number] 51 [place] 12:24:00 15:36:00 ANUSHA -[id number] [facility] 2018-03-07 2018-03-07 Outpatient RACHEL CRUZ, [facility] [id number] [place] 08:10:00 08:10:00 BRADLY -[id number] [facility] 2018-02-21 2018-02-21 Outpatient RACHEL BOSCH, [facility] [id number] [place] 10:04:00 10:04:00 REJI -[id number] [facility] 2018-02-06 2018-02-06 Emergency ER UGORARYA, [facility] [id number] 51 [place] 15:18:00 19:47:00 ANUSHA -[id number] [facility] 2018-01-24 2018-01-24 Emergency ER BA, SUNITHA [facility] [id number] [place] 14:29:00 17:20:00 -[id number] [facility] 2017-11-24 2017-11-24 Emergency ER FRAME, [facility] [id number] [place] 19:24:00 22:37:00 MARIA INES -[id number] [facility] 2017-11-11 2017-11-11 Emergency ER FRAME, [facility] [id number] 51 [place] 02:51:00 06:08:00 MARIA INES -[id number] [facility] 2017-11-04 2017-11-04 Emergency ER BRYNN, [facility] [id number] [place] 00:31:00 04:02:00 ARELIS -[id number] [facility] 2017-10-30 2017-10-30 Emergency ER BRYNN, [facility] [id number] [place] 10:31:00 12:09:00 ARELIS -[id number] [facility] 2017-09-20 2017-09-20 Emergency ER VARGAS OAKESS [facility] [id number] [place] 11:26:00 13:18:00 -[id number] [facility] 2017-08-21 2017-08-21 Emergency ER BRYNN, [facility] [id number] [place] 16:53:00 21:59:00 ARELIS -[id number] [facility] 2017-07-11 2017-07-11 Emergency ER FRAME, [facility] [id number] [place] 20:26:00 23:57:00 MARIA INES -[id number] [facility] 2017-06-29 2017-06-29 Emergency ER UGCUAUHTEMOC, [facility] [id number] 51 [place] 08:11:00 13:11:00 ANUSHA -[id number] [facility] 2017-06-24 2017-06-25 Emergency ER EDSON, [facility] [id number] [place] 23:45:00 02:16:00 IVETH -[id number] [facility] 2017-06-07 2017-06-07 Emergency ER VARGAS OAKESS [facility] [id number] [place] 13:25:00 17:31:00 -[id number] [facility] 2017-06-01 2017-06-01 Emergency ER UGORJI, [facility] [id number] [place] 17:42:00 19:23:00 ANUSHA -[id number] [facility] 2017-03-16 2017-03-16 Emergency ER BRYNN, [facility] [id number] [place] 00:55:00 03:18:00 ARELIS [id number] [facility] 2017-02-18 2017-02-18 Emergency ER MARIO, [facility] [id number] [place] 12:30:00 16:33:00 JESUS -[id number] [facility] 2017-02-12 2017-02-12 Outpatient JORDY, [facility] [id number] [place] 07:57:00 07:57:00 RANDALL -[id number] [facility] 2017-02-02 2017-02-02 Emergency ER UGORJI, [facility] [id number] 51 [place] 03:22:00 05:04:00 [facility] -[id number] [facility] 2017-01-19 2017-01-19 Emergency ER MARCO, [facility] [id number] [place] 17:59:00 22:06:00 CHONG -[id number] [facility] 2017-01-07 2017-01-07 Emergency ER MARIO, [facility] [id number] [place] 17:10:00 22:13:00 JESUS -[id number] [facility] 2016-11-11 2016-11-11 Emergency ER UGORJI, [facility] [id number] [place] 03:51:00 05:04:00 [facility] -[id number] [facility] 2016-10-25 2016-10-25 Emergency ER , [facility] [id number] [place] 06:49:00 08:38:00 WAS -[id number] [facility] 2016-10-23 2016-10-23 Outpatient EL JANNIE [facility] [id number] [place] 07:56:00 07:56:00 Dee MAGALY -[id number] [facility] 2016-04-05 2016-04-05 Emergency ER OWO, TOKS [facility] [id number] [place] 07:54:00 09:22:00 -[id number] [facility] 2016-04-04 2016-04-04 Emergency ER UGORJI, [facility] [id number] [place] 18:08:00 20:15:00 [facility] -[id number] [facility] 2015-11-17 2015-11-18 Emergency ER MARYANN, SUNITHA [facility] [id number] [place] 22:24:00 00:07:00 -[id number] [facility] 2015-10-21 2015-10-21 Outpatient EL SIMON, [facility] [id number] [place] 14:23:00 14:23:00 MICHELLE -[id number] [facility] 2015-10-14 2015-10-14 Emergency ER UGORJI, [facility] [id number] [place] 01:41:00 04:56:00 CLEMENT -[id number] [facility] 2015-03-01 2015-03-01 Emergency ER KEE, [facility] [id number] 51 [place] 18:05:00 23:40:00 WASIM -[id number] [facility] 2014-11-01 2014-11-01 Emergency ER KEE, [facility] [id number] [place] 13:03:00 14:00:00 WASIM -[id number] [facility] 2014-09-24 2014-09-24 Emergency ER BA, SUNITHA [facility] [id number] [place] 13:58:00 15:00:00 -[id number] [facility] 2014-08-17 2014-08-17 Emergency ER COURTNEY, [facility] [id number] [place] 03:21:00 05:35:00 SOL -[id number] [facility] 2014-05-17 2014-05-17 Emergency ER COURTNEY, [facility] [id number] [place] 20:10:00 22:09:00 SOL -[id number] [facility] 2014-03-17 2014-03-17 Emergency ER UGORJI, [facility] [id number] [place] 14:47:00 19:48:00 CLEKIESHA -[id number] [facility] 2014-01-02 2014-01-02 Emergency ER YARIMA, [facility] [id number] [place] 00:26:00 06:52:00 LEONARDO -[id number] [facility] 2013-08-29 2013-08-29 Emergency ER UGORJI, [facility] [id number] [place] 19:39:00 20:52:00 ANUSHA -[id number] [facility] 2013-08-25 2013-08-25 Emergency ER UGORJI, [facility] [id number] 51 [place] 17:17:00 18:59:00 [facility] -[id number] [facility] 2013-04-30 2013-04-30 Emergency ER KEE, [facility] [id number] [place] 18:15:00 19:14:00 WAS -[id number] [facility] 2013-04-17 2013-04-17 Emergency ER , [facility] [id number] 51 [place] 14:29:00 17:14:00 WAS -[id number] [facility] 2013-04-04 2013-04-04 Emergency ER BA, SUNITHA [facility] [id number] [place] 19:12:00 21:59:00 -[id number] [facility] 2013-01-30 2013-01-31 Emergency ER LYNNE, [facility] [id number] [place] 23:27:00 01:52:00 RENETTA -[id number] [facility] 2012-10-07 2012-10-07 Emergency ER JAMELIZAS, [facility] [id number] [place] 15:09:00 19:00:00 RENETTA -[id number] [facility] 2012-10-01 2012-10-01 Outpatient UR VALLOPPILLI [facility] D00 [id number] [place] 14:35:00 14:35:00 FRANCY Price -[id number] [facility] 2012-08-08 2012-08-08 Outpatient EL VIVIAN, [facility] [id number] [place] 11:10:00 11:10:00 K -[id number] [facility] 2012-08-02 2012-08-02 Outpatient EL VIVIAN, [facility] [id number] [place] 10:06:00 10:06:00 Troy -[id number] [facility] 2012-06-20 2012-06-20 Outpatient UR VALLOPPILLI [facility] D00 [id number] [place] 15:28:00 15:28:00 JEANNIE PriceI -[id number] [facility] 2011-06-01 2011-06-01 Emergency ER OTINWA, [facility] [id number] [place] 20:25:00 23:59:00 VIPIN -[id number] [facility] 2011-05-25 2011-05-25 Outpatient EL VALLOPPILLI [facility] D00 [id number] [place] 15:35:00 15:35:00 L, AMMINI -[id number] [facility] 2011-05-11 2011-05-11 Emergency ER UGORARYA, [facility] [id number] [place] 18:28:00 20:06:00 CLEMENT -[id number] [facility] 2011-03-02 2011-03-02 Emergency ER KEE, [facility] [id number] [place] 22:33:00 23:36:00 WASIM -[id number] [facility] 2010-11-18 2010-11-18 Outpatient EL VALLOPPILLI [facility] D00 [id number] [place] 15:18:00 15:18:00 L, AMMINI -[id number] [facility] 2010-06-01 2010-06-01 Outpatient EL VALLOPPILLI [facility] D00 [id number] [place] 14:11:00 14:11:00 L, AMMINI -[id number] [facility] 2009-05-30 2009-05-30 Emergency ER [facility] [id number] [id number] [place] 20:47:00 22:18:00 MARIMAR, -[id number] [facility] 2008-08-04 2008-08-04 Outpatient EL VALLOPPILLI [facility] D00 [id number] [place] 09:06:00 09:06:00 L, AMMINI -[id number] [facility] 2008-05-22 2008-05-22 Outpatient EL VALLOPPILLI [facility] D00 [id number] [place] 10:11:00 10:11:00 L, AMMINI -[id number] [facility] 2006-09-18 2006-09-18 Outpatient UR VALLOPPILLI [facility] D00 [id number] [place] 15:15:00 15:15:00 L, AMMINI -[id number] [facility] 2006-03-16 2006-03-16 Emergency ER ZAPATA, [facility] [id number] [place] 22:23:00 23:55:00 CARLYLE -[id number] [facility] 2006-01-11 2006-01-11 Outpatient EL VALLOZOILAILLI [facility] D00 [id number] [place] 08:57:00 08:57:00 L, AMMINI -[id number] [facility] 2005-08-30 2005-08-30 Outpatient UR VALLOPPILLI [facility] D00 [id number] [place] 12:46:00 12:46:00 L, AMMINI -[id number] [facility] 2005-04-19 2005-04-19 Outpatient EL VALLOPPILLI [facility] D00 [id number] [place] 10:31:00 10:31:00 L, AMMINI -[id number] [facility] 2004-06-13 2004-06-13 Outpatient EL VALLOPPILLI [facility] D00 [id number] [place] 10:28:00 10:28:00 L, AMMINI -[id number] [facility] 2004-04-01 2004-04-01 Outpatient UR VALLOPPILLI [facility] D00 [id number] [place] 17:18:00 17:18:00 L, AMMINI -[id number] [facility] Results Test Description Test Time Test Comments Results Result Comments Source Urine culture 2022-04-07 18:36:00 Test Item Value Reference Range Interpretation Comme nts Urine culture (test code = 2295355) SEE COMMENT Bacteriuria screen negative. [facility] [id number] 18:36:00 Test Item Value Reference Range Interpretation Comments Urine culture (test SEE COMMENT Bacteriu elisabet screen code = 4953906) negative. [facility] [id number] 18:36:00 Test Item Value Reference Range Interpretation Comments Urine culture (test SEE COMMENT Bacteriu elisabet screen code = 3255850) negative. [facility]2022-08-12 18:36:00 Test Item Value Reference Range Interpretation Comments Urine culture (test SEE COMMENT Bacteriu elisabet screen code = 3697382) negative. [facility]2022-08-12 18:36:00 Test Item Value Reference Range Interpretation Comments Urine culture (test SEE COMMENT Bacteriu elisabet screen code = 8473171) negative. [facility] [id number] 18:36:00 Test Item Value Reference Range Interpretation Comments Urine culture (test SEE COMMENT Bacteriu elisabet screen code = 1987153) negative. [facility] [id number] 18:36:00 Test Item Value Reference Range Interpretation Comments Urine culture (test SEE COMMENT Bacteriu elisabet screen code = 1066283) negative. [facility] [id number] 18:36:00 Test Item Value Reference Range Interpretation Comments Urine culture (test SEE COMMENT Bacteriu elisabet screen code = 4727047) negative. [facility] [id number] 18:36:00 Test Item Value Reference Range Interpretation Comments Urine culture (test SEE COMMENT Bacteriu elisabet screen code = 7862242) negative. [facility] [id number] 14:49:00 Test Item Value Reference Range Interpretation Comments COVID 19 INHOUSE NEGATIVE NEGATIVE Negative re sults should be AG (test code = treated as p resumptive and [id number]) ifinconsistent with clinical signs and sympt oms, or necessaryfor pa tient management, rossy uld be tested with an alterna tivemolecular assay. Negative results do not preclude [id number]-[id number]-[id number] tion and should not be u sed as the sole basis forp atient management deci sions. Negative result s should beconsidered in the context of a patient's recent exposures,histo ry, presence of clinical sig ns and symptoms consis tentwith COVID-19. BASIC METABOLIC [id number] 12:30:00 Test Item Value Reference Range Interpretation Comments SODIUM (test code = NA) 138 mmol/l 134.0-147.0 N POTASSIUM (test code = K) 3.8 mmol/L 3.6-5.2 N CHLORIDE (test code = CL) 103 mmol/l 98.0-107.0 N CARBON DIOXIDE (test code = CO2) 27.0 mmol/l 21.0-33.0 N ANION GAP (test code = GAP) 11.8 0-20 N GLUCOSE (test code = GLU) 88 mg/dl 70.0-110.0 N BLOOD UREA NITROGEN (test code = 9 mg/dl 7.0-18.0 N BUN) CREATININE (test code = CREAT) 0.71 mg/dL 0.60-1.30 N GFR NON BLACK (test code = 105 mL/min 110-120 L GFRNONBLACK) GFR BLACK (test code = GFRBLACK) 128 mL/min 133-145 L CALCIUM (test code = CA) 8.3 mg/dl 8.0-10.5 N HEPATIC FUNCTION PANEL [id number] 12:30:00 Test Item Value Reference Range Interpretation Comments TOTAL PROTEIN (test code = PROT) 7.4 gm/dL 6.4-8.2 N ALBUMIN (test code = ALB) 4.2 gm/dl 3.2-4.7 N BILIRUBIN TOTAL (test code = BILT) 0.6 mg/dl 0.0-1.0 N BILIRUBIN DIRECT (test code = 0.1 mg/dl 0.0-0.3 N BILD) SGOT/AST (test code = AST) 13 Units/L 15-37 L SGPT/ALT (test code = ALT) 14 Units/L 12.0-78.0 N ALKALINE PHOSPHATASE TOTAL (test 56 Units/L 50.0-136.0 N code = ALKP) [id number] 12:30:00 Test Item Value Reference Range Interpretation Comments LIPASE (test code = LIP) 169 Units/L 65.0-230.0 N - CT ABD PELVIS W/O [id number] 12:26:00 [facility] GRUPO E : 1995 Sex: F FAX: Immanuel Terrell MD [phone] [place]: [address]: PRE Name: GRUPO CHASE HCAKaci Prieto : 1995 Age/S: 25/F [address] [facility] [address] Unit: [id number] Loc: [address] Phys: [place] [id number] Acct: [id number] Dis Date: Status: PRE ER PHONE #: [phone] Exam Date: 05/08/2021 1210 FAX #: [phone] Reason: LOWER ABD PAIN EXAMS: CPT CODE: [id number] CT ABD PELVIS W/O CONT 74934 CLINICAL HISTORY: LOWER ABD PAIN. LOCATION: A1 FINDINGS: Multislice axial images are obtained through the abdomenand pelvis without oral or intravenous contrast. Coronal and sagittal reconstructed images are obtained and are used in interpretation. There is a 5 mm hypodense lesion within the right hepatic lobe that is too small to characterize and may represent cyst. Hepatic hypodense lesions of this size are considered benign incidental findings in the absence of a known primary malignancy. The gallbladder has been surgically removed. No abnormalities are noted of the pancreas or spleen. The adrenal glands are within normal limits. There are several bilateral small renal calculi. No ureteral calculi or hydronephrosis. There is an intrauterine device in place that appears to be appropriately positioned. Theintrapelvic viscera are otherwise within normal limits. No significant adenopathy is identified. No free fluid or fluid collections are evident. No focal signs of inflammation are noted. The appendix is normal in appearance. No acute skeletal or soft tissue abnormalities. IMPRESSION: 1. No acute abnormalities are identified. 2. There are several small bilateral renal calculi. No hydronephrosis. This exam was performed according to our departmental dose-optimization program, which includes automated exposure control, adjustment of the mA and/or kV according to patient size and/or use of iterative reconstruction technique at 1226 Reported and signed by: Meño Cortez M.D. PAGE 1 Signed Report (CONTINUED) FAX: Immanuel Shanks [phone] [place]: St: PRE --------- Name: GRUPO CHASE [facility] : 1995 Age/S: 25/F [address] [id number] Loc: [address] Phys: [place] [id number] Acct: [id number] DisDate: Status: PRE ER PHONE #: [phone] Exam Date: 05/08/2021 1210 FAX #: [phone] Reason: LOWER ABD PAIN EXAMS: CPT CODE: [id number] CT ABD PELVIS W/O CONT 95817 (Continued) CC: Immanuel Shanks MD Technologist: ESSENCE JOHNSON Trnscrd Dt/Tm: 05/08/2021 (1226) [email or web address] Orig Print D/T: S: 05/08/2021 (1229 PAGE 2 Signed Report- CT ABD PELVIS W/O [id number] 12:26:00 [facility] : 1995 Sex: F FAX: Immanuel Walden MD [phone] [place]: St: [facility] Name: GRUPO CHASE [facility] : 1995 Age/S: 25/F [address] [facility] Unit: [id number] Loc: [facility] [place], [place] Phys: [place] [address] Acct:[id number] Dis Date: Status: [facility] ER PHONE #: [phone] Exam Date: 05/08/2021 1210 FAX #: [phone] Reason: LOWER ABD PAIN EXAMS: CPT CODE: [id number] CT ABD PELVIS W/O CONT 87825 CLINICAL HISTORY: LOWER ABD PAIN. LOCATION: A1 FINDINGS: Multislice axial images are obtained through the abdomen and pelvis without oral or intravenous contrast. Coronal and sagittal reconstructed images are obtainedand are used in interpretation. There is a 5 mm hypodense lesion within the right hepatic lobe that is too small to characterize and may represent cyst. Hepatic hypodense lesions of this size are considered benign incidental findings in the absence of a known primary malignancy. The gallbladder has been surgically removed. No abnormalities are noted of the pancreas or spleen. The adrenal glands are within normal limits. There are several bilateral small renal calculi. No ureteral calculi or hydronephrosis. There is an intrauterine device in place that appears to be appropriately positioned. The intrapelvic viscera are otherwise within normal limits. No significant adenopathy is identified. No freefluid or fluid collections are evident. No focal signs of inflammation are noted. The appendix is normal in appearance. No acute skeletal or soft tissue abnormalities. IMPRESSION: 1. No acute abnormalities are identified. 2. There are several small bilateral renal calculi. No hydronephrosis. This examwas performed according to our departmental dose-optimization program, which includes automated exposure control, adjustment of the mA and/or kV according to patient size and/or use of iterative reconstruction technique at 1226 Reported and signed by: Meño Cortez M.D. PAGE 1 Signed Report (CONTINUED) FAX: Immanuel Shanks MD [phone] [place]: St: DEP ---- Name: GRUPO CHASE [facility] : 1995 Age/S: 25/F [address] [facility] Unit: [id number] Loc: [address] Phys: [place] [address] Acct: [id number] Dis Date:Status: DEP ER PHONE #: [phone] Exam Date: 05/08/2021 1210 FAX #: [phone] Reason: LOWER ABD PAIN EXAMS: CPT CODE: [id number] CT ABD PELVIS W/O CONT 47802 <Continued> CC: Immanuel Shanks MD Technologist: ESSENCE JOHNSON Trnscrd Dt/Tm: 05/08/2021 (0726) [email or web address] Orig Print D/T: S: 05/08/2021 (9219 PAGE 2 Signed Report URINALYSIS [id number] 12:13:00 Test Item Value Reference Range Interpretation Comments UA COLOR (test code = LT YELLOW COLU) UA APPEARANCE (test code CLEAR = APPU) UA GLUCOSE DIPSTICK (test NORMAL mg/dl NORMAL code = DGLUU) UA BILIRUBIN DIPSTICK NEGATIVE mg/dL NEGATIVE (test code = BILU) UA KETONE DIPSTICK (test NEGATIVE mg/dl NEGATIVE code = KETU) UA SPECIFIC GRAVITY (test 1.010 1.000-1.030 code = SGU) UA BLOOD DIPSTICK (test 25 Yonatan/micL Yonatan/micL NEGATIVE A code = ARELY) UA PH DIPSTICK (test code 7.0 5.0-9.0 = CORBY) UA PROTEIN DIPSTICK (test NEGATIVE mg/dl NEGATIVE code = PROU) UA UROBILINIOGEN DIPSTICK NORMAL mg/dl NORMAL (test code = URO) UA NITRITE DIPSTICK (test NEGATIVE NEGATIVE code = LYDIA) UA LEUKOCYTE ESTERASE NEGATIVE Earnest/micL NEGATIVE DIPSTICK (test code = LEUU) UA WBC (test code = WBCU) 0-3 WBC/HPF NONE UA RBC (test code = RBCU) 1-3 RBC/HPF 0-3 UA EPITHELIAL CELLS (test 15-25 EPI/HPF 0-3 A code = EPIU) UA BACTERIA (test code = FEW NONE BACU) UR HCG [id number] 12:13:00 Test Item Value Reference Range Interpretation Comments UR HCG QUAL (test code = HCGQLU) NEGATIVE NEGATIVE BASIC METABOLIC [id number] 12:13:00 Test Item Value Reference Range Interpretation Comments SODIUM (test code = NA) 138 mmol/l 134.0-147.0 N POTASSIUM (test code = K) 3.8 mmol/L 3.6-5.2 N CHLORIDE (test code = CL) 103 mmol/l 98.0-107.0 N CARBON DIOXIDE (test code = CO2) 27.0 mmol/l 21.0-33.0 N ANION GAP (test code = GAP) 11.8 0-20 N GLUCOSE (test code = GLU) mg/dl 70.0-110.0 BLOOD UREA NITROGEN (test code = mg/dl 7.0-18.0 BUN) CREATININE (test code = CREAT) mg/dL 0.60-1.30 GFR NON BLACK (test code = mL/min 110-120 GFRNONBLACK) GFR BLACK (test code = GFRBLACK) mL/min 133-145 CALCIUM (test code = CA) mg/dl 8.0-10.5 HEPATIC FUNCTION PANEL [id number] 12:13:00 Test Item Value Reference Range Interpretation Comments TOTAL PROTEIN (test code = PROT) gm/dL 6.4-8.2 ALBUMIN (test code = ALB) gm/dl 3.2-4.7 BILIRUBIN TOTAL (test code = BILT) mg/dl 0.0-1.0 BILIRUBIN DIRECT (test code = BILD) mg/dl 0.0-0.3 SGOT/AST (test code = AST) Units/L 15-37 SGPT/ALT (test code = ALT) Units/L 12.0-78.0 ALKALINE PHOSPHATASE TOTAL (test Units/L 50.0-136.0 code = ALKP) [id number] 12:13:00 Test Item Value Reference Range Interpretation Comments LIPASE (test code = LIP) Units/L 65.0-230.0 URINALYSIS [id number] 12:03:00 Test Item Value Reference Range Interpretation Comments UA COLOR (test code = LT YELLOW COLU) UA APPEARANCE (test code CLEAR = APPU) UA GLUCOSE DIPSTICK (test NORMAL mg/dl NORMAL code = DGLUU) UA BILIRUBIN DIPSTICK NEGATIVE mg/dL NEGATIVE (test code = BILU) UA KETONE DIPSTICK (test NEGATIVE mg/dl NEGATIVE code = KETU) UA SPECIFIC GRAVITY (test 1.010 1.000-1.030 code = SGU) UA BLOOD DIPSTICK (test 25 Yonatan/micL Yonatan/micL NEGATIVE A code = ARELY) UA PH DIPSTICK (test code 7.0 5.0-9.0 = CORBY) UA PROTEIN DIPSTICK (test NEGATIVE mg/dl NEGATIVE code = PROU) UA UROBILINIOGEN DIPSTICK NORMAL mg/dl NORMAL (test code = URO) UA NITRITE DIPSTICK (test NEGATIVE NEGATIVE code = LYDIA) UA LEUKOCYTE ESTERASE NEGATIVE Earnest/micL NEGATIVE DIPSTICK (test code = LEUU) UA WBC (test code = WBCU) WBC/HPF NONE UA RBC (test code = RBCU) RBC/HPF 0-3 UA EPITHELIAL CELLS (test EPI/HPF 0-3 code = EPIU) UA BACTERIA (test code = NONE BACU) UR HCG [id number] 12:03:00 Test Item Value Reference Range Interpretation Comments UR HCG QUAL (test code = HCGQLU) NEGATIVE NEGATIVE URINALYSIS [id number] 12:02:00 Test Item Value Reference Range Interpretation Comments UA COLOR (test code = LT YELLOW COLU) UA APPEARANCE (test code CLEAR = APPU) UA GLUCOSE DIPSTICK (test NORMAL mg/dl NORMAL code = DGLUU) UA BILIRUBIN DIPSTICK NEGATIVE mg/dL NEGATIVE (test code = BILU) UA KETONE DIPSTICK (test NEGATIVE mg/dl NEGATIVE code = KETU) UA SPECIFIC GRAVITY (test 1.010 1.000-1.030 code = SGU) UA BLOOD DIPSTICK (test 25 Yonatan/micL Yonatan/micL NEGATIVE A code = ARELY) UA PH DIPSTICK (test code 7.0 5.0-9.0 = CORBY) UA PROTEIN DIPSTICK (test NEGATIVE mg/dl NEGATIVE code = PROU) UA UROBILINIOGEN DIPSTICK NORMAL mg/dl NORMAL (test code = URO) UA NITRITE DIPSTICK (test NEGATIVE NEGATIVE code = LYDIA) UA LEUKOCYTE ESTERASE NEGATIVE Earnest/micL NEGATIVE DIPSTICK (test code = LEUU) UA WBC (test code = WBCU) WBC/HPF NONE UA RBC (test code = RBCU) RBC/HPF 0-3 UA EPITHELIAL CELLS (test EPI/HPF 0-3 code = EPIU) UA BACTERIA (test code = NONE BACU) UR HCG [id number] 12:02:00 Test Item Value Reference Range Interpretation Comments UR HCG QUAL (test code = HCGQLU) NEGATIVE CBC W/AUTO [id number] 11:56:00 Test Item Value Reference Range Interpretation Comments WHITE BLOOD CELL (test code = 4.2 K/mm3 4.5-11.0 L WBC) RED BLOOD CELL (test code = 4.37 M/mm3 3.80-5.20 N RBC) HEMOGLOBIN (test code = HGB) 13.6 gm/dL 12.0-16.0 N HEMATOCRIT (test code = HCT) 40.3 % 36.0-48.0 N MEAN CELL VOLUME (test code = 92.2 UM3 82.0-99.0 N MCV) MEAN CELL HGB (test code = MCH) 31.1 UUG 25.5-32.5 N MEAN CELL HGB CONCETRATION 33.7 gm/dL 29.0-35.5 N (test code = MCHC) RED CELL DISTRIBUTION WIDTH 11.9 % 11.5-15.0 N (test code = RDW) RED CELL DISTRIBUTION WIDTH SD 40.7 fL 34.8-50.2 N (test code = RDW-SD) PLATELET COUNT (test code = 228 K/mm3 150-400 N PLT) MEAN PLATELET VOLUME (test code 10.0 fl 7.4-10.4 N = MPV) NEUTROPHIL % (test code = NT%) 54.4 % 49.0-76.0 N IMMATURE GRANULOCYTE % (test 0.2 % 0.0-0.4 N code = IG%) LYMPHOCYTE % (test code = LY%) 34.8 % 23.0-38.0 N MONOCYTE % (test code = MO%) 8.5 % 1.0-10.0 N EOSINOPHIL % (test code = EO%) 1.4 % 1.0-5.0 N BASOPHIL % (test code = BA%) 0.7 % 0.0-1.0 N NUCLEATED RBC % (test code = 0.0 % 0.0-0.1 N NRBC%) NEUTROPHIL # (test code = NT#) 2.3 K/mm3 2.4-6.3 L IMMATURE GRANULOCYTE # (test 0.01 x10 3/uL 0.00-0.07 N code = IG#) LYMPHOCYTE # (test code = LY#) 1.5 K/mm3 1.2-4.0 N MONOCYTE # (test code = MO#) 0.4 K/mm3 0.0-0.6 N EOSINOPHIL # (test code = EO#) 0.1 K/MM3 0.0-0.7 N BASOPHIL # (test code = BA#) 0.0 K/mm3 0.0-0.2 N NUCLEATED RBC # (test code = 0.00 X10 3uL 0.00-0.01 N NRBC#) CT + NG + TV, DNA, urine/[id number] 00:00:00 Test Item Value Reference Range Interpretation Comments Chlamydia trachomatis rRNA negative negative [Presence] in Unspecified specimen by LISETTE with probe detection (test code = 43923-7) Neisseria gonorrhoeae rRNA negative negative [Presence] in Unspecified specimen by LISETTE with probe detection (test code = 89491-7) Trichomonas vaginalis DNA [Presence] negative negative in Unspecified specimen by LISETTE with probe detection (test code = 42804-3) [facility], urine/swab 2019-12-26 00:00:00 Test Item Value Reference Range Interpretation Comments Chlamydia trachomatis rRNA negative negative [Presence] in Unspecified specimen by LISETTE with probe detection (test code = 25367-4) Neisseria gonorrhoeae rRNA negative negative [Presence] in Unspecified specimen by LISETTE with probe detection (test code = 38767-4) Trichomonas vaginalis DNA [Presence] negative negative in Unspecified specimen by LISETTE with probe detection (test code = 10473-4) [facility], DNA, urine/swab 2019-12-26 00:00:00 Test Item Value Reference Range Interpretation Comments Chlamydia trachomatis rRNA negative negative [Presence] in Unspecified specimen by LISETTE with probe detection (test code = 65748-9) Neisseria gonorrhoeae rRNA negative negative [Presence] in Unspecified specimen by LISETTE with probe detection (test code = 08885-1) Trichomonas vaginalis DNA [Presence] negative negative in Unspecified specimen by LISETTE with probe detection (test code = 22914-4) [facility] [Presence] in Respiratory specimen by LISETTE with probe [id number] 00:00:00 Test Item Value Reference Range Interpretation Comments SARS coronavirus 2 RNA not detected not detected [Presence] in Respiratory specimen by LISETTE with probe detection (test code = 07826-6) [facility]2019-12-11 09:57:00 Test Item Value Reference Range Interpretation Comments Flu (test code = Flu) negative [facility]2019-12-11 09:57:00 Test Item Value Reference Range Interpretation Comments Flu (test code = Flu) negative [facility] macro (dipstick) panel - [id number] 17:30:52 Test Item Value Reference Range Interpretation Comments Leukocytes (test code = - Leukocytes) Nitrite (test code = Nitrite) - Urobilinogen (test code = - Urobilinogen) Protein (test code = Protein) + pH (test code = pH) 6 Blood (test code = Blood) 3+ Specific [place] (test code = 1.030 Specific [place]) Ketone (test code = Ketone) - Bilirubin (test code = Bilirubin) - Glucose (test code = Glucose) - Appearance (test code = cloudy Appearance) Color (test code = Color) dark yellow [facility] macro (dipstick) panel - [id number] 17:30:52 Test Item Value Reference Range Interpretation Comments Leukocytes (test code = - Leukocytes) Nitrite (test code = Nitrite) - Urobilinogen (test code = - Urobilinogen) Protein (test code = Protein) + pH (test code = pH) 6 Blood (test code = Blood) 3+ Specific [place] (test code = 1.030 Specific [place]) Ketone (test code = Ketone) - Bilirubin (test code = Bilirubin) - Glucose (test code = Glucose) - Appearance (test code = cloudy Appearance) Color (test code = Color) dark yellow [facility] test, [id number] 09:50:00 Test Item Value Reference Range Interpretation Comments HCG (test code = HCG) negative [facility] Programpregnancy test, [id number] 09:50:00 Test Item Value Reference Range Interpretation Comments HCG (test code = HCG) negative [facility] DNA panel [Presence] - Vaginal fluid by Probe and signal amplification method 2019-07-11 00:00:00 Test Item Value Reference Range Interpretation Comments atopobium vaginae (test code = low - 0 atopobium vaginae) bvab 2 (test code = bvab 2) low - 0 megasphaera 1 (test code = low - 0 megasphaera 1) shahana albicans, LISETTE (test code = positive negative A shahana albicans, LISETTE) shahana glabrata, LISETTE (test code = negative negative shahana glabrata, LISETTE) Trichomonas vaginalis rRNA negative negative [Presence] in Unspecified specimen by Probe and target amplification method (test code = 68798-0) Chlamydia trachomatis rRNA negative negative [Presence] in Unspecified specimen by Probe and target amplification method (test code = 80322-1) Neisseria gonorrhoeae rRNA negative negative [Presence] in Unspecified specimen by Probe and target amplification method (test code = 67338-2) [facility] DNA panel [Presence] - Vaginal fluid by Probe and signal amplification method 2019-07-11 00:00:00 Test Item Value Reference Range Interpretation Comments atopobium vaginae (test code = low - 0 atopobium vaginae) bvab 2 (test code = bvab 2) low - 0 megasphaera 1 (test code = low - 0 megasphaera 1) shahana albicans, LISETTE (test code = positive negative A shahana albicans, LISETTE) shahana glabrata, LISETTE (test code = negative negative shahana glabrata, LISETTE) Trichomonas vaginalis rRNA negative negative [Presence] in Unspecified specimen by Probe and target amplification method (test code = 64816-4) Chlamydia trachomatis rRNA negative negative [Presence] in Unspecified specimen by Probe and target amplification method (test code = 77373-8) Neisseria gonorrhoeae rRNA negative negative [Presence] in Unspecified specimen by Probe and target amplification method (test code = 71401-7) [facility] ProgramLipid [id number] 06:52:00 Test Item Value Reference Range Interpretation Comments Cholesterol (test 154 mg/dL 0-200 N code = CHOL) Triglycerides (test 120 mg/dL 9-200 N code = TRIG) HDL (test code = 72 mg/dL 50-60 H HDL) Chol/HDL (test code 2.1 Ratio 0.0-4.4 N = CHOLPHDL) LDL, Calculated 58 0-130 N (NOTE)RISK O F HEART (test code = LDLC) DISEASEPu blished by [place] Heart AssociationAnal yte Optimal Boderli ne Increased RiskC HOL <200 200-239 >240TR IG <150 150-199 >200HDL Male: >60 <40HDL Fema le: >60 <50LDL <100 130 -159 >160LDL NEAR [facility] IS 100-129 VLDL (test code = 24 mg/dL 5-40 N VLDL) LDL/HDL (test code = 1 LDLPHDL) RPR, [id number] 17:50:00 Test Item Value Reference Range Interpretation Comments RPR (test code = RPR) Non-Reactive Non-Reactive N Thyroid Stimulating Hormone (TSH)2017-02-21 08:00:00 Test Item Value Reference Range Interpretation Comments TSH (test code = TSH) 1.39 mIU/mL 0.270-4.200 N [id number] 14:20:00 Test Item Value Reference Range Interpretation Comments Salicylate (test code <0.3 mg/dL 0.3-10.0 L Jemma nge in unit of = SALI) measurement for Salicylate ( fr om ug/mL to mg/dL ) [id number] 14:20:00 Test Item Value Reference Range Interpretation Comments Acetaminophen (test code = ACET) <15.0 ug/mL 15.0-30.0 L BHCG, Urine, [id number] 12:59:00 Test Item Value Reference Range Interpretation Comments Preg Qual [Ur] (test code = HUHCG) Negative Negative N [id number] 12:58:00 Test Item Value Reference Range Interpretation Comments Lipase (test code = LIP) 224 U/L 13-60 H Comprehensive Metabolic [id number] 12:58:00 Test Item Value Reference Range Interpretation Comments Sodium (test code = 139 mmol/L 135-145 N NA) Potassium (test 3.3 mmol/L 3.5-5.1 L code = K) Chloride (test code 97 mmol/L 98-105 L = CL) Carbon Dioxide 24 mmol/L 22-29 N (test code = CO2) Glucose (test code 97 mg/dL 70-115 N = GLU) Blood Urea Nitrogen 7 mg/dL 6-20 N (test code = BUN) Creatinine (test 0.6 mg/dL 0.5-0.9 N code = CREAT) Calcium (test code 9.5 mg/dL 8.3-10.5 N = CA) Prot Total (test 7.4 g/dL 6.4-8.3 N code = TP) Albumin (test code 4.5 g/dL 3.5-5.2 N = ALB) A/G Ratio (test 1.6 Ratio code = AGRATIO) Globulin (test code 2.9 2.9-3.1 N = GLOB) Bili Total (test 0.5 mg/dL 0.1-0.9 N code = TBIL) Alk Phos (test code 70 U/L 35-104 N = APHOS) AST (test code = 84 U/L 1-32 H AST) ALT (test code = 109 U/L 1-33 H ALT) BUN/Creatinine 11.7 Ratio (test code = BCRATIO) Anion Gap (test 18 mmol/L 7-16 H code = AGAP) Estimated GFR (test >60 eGFR (es timated code = GFR) mL/min/1.73m2 Glomerular True tration Rate) is an est imated value,calculate d from the patient's s virgen creatinine usin g the MDRD equation.I t is NOT the patient 's actual GFR. The eGFR provides a more clinicallyusefu l measure of kidn ey disease than se rum creatinine alone.This calculation juan c es sex and race into account, if the informationis provided. If th e race is not provided , and the patient isAfrican-Ameri can, multiply by 1.2 12. If sex is not prov ided, and thepatient is female, multipl y by 0.742. Results for patients <18 ye ars ofage have not been validated by th e MDRD study and shoul d be interpretedwith caution.eGFR Re sult Interpretation: eGFR > or = 60 is in t he Normal RangeeGF R < 60 may mean kidney diseaseeGFR < 1 5 may mean kidney failureRange s recommended by the National Kidney Foundation,http ://nkd ep.nih.gov [id number] 12:58:00 Test Item Value Reference Range Interpretation Comments Amphetamine (test Negative Negative N For diagno stic code = AMPH) purposes only, positive result s should always b e assessedin conjunctionwith the patient's medic al history,clinica l examination and otherfindings.T o fulfill legal requirements, a more specific altern ate chemical method must be used inorder to obtain a Confirmed mitchell lytical result. GC/MS i s the preferred confi rmatory method. Barbiturates (test Negative Negative N code = DOROTHY) Benzodiazepine (test Negative Negative N code = MUKESH) Cocaine (test code = Negative Negative N COCA) Methadone (test code Negative Negative N = MTHD) Opiates (test code = Negative Negative N OPIA) PCP (test code = PCP) Negative Negative N Propoxyphene (test Negative Negative N code = PROPOX) THC (test code = THC) Negative Negative N Alcohol, Urine (test <0.01 g/dL 0.00-0.01 N code = ETOHU) Urinalysis [id number] 12:33:00 Test Item Value Reference Range Interpretation Comments Color (test code = COLOR) Yellow Yellow,Straw,Pl N yellow Clarity (test code = Clear Clear N CLAR) Specific [place] (test 1.015 1.001-1.035 N code = SPGR) pH (test code = PH) 6.5 5.0-9.0 N Ketone (test code = KET) 150 mg/dL Negative A Glucose (test code = Negative mg/dL Negative N GLUCUR) Protein (test code = 25 mg/dL Negative A PROT) Bilirubin (test code = Negative mg/dL Negative N BILI) Occult Blood (test code = Small Negative A UDOB) Urobilinogen (test code = 0.2 mg/dL 0.2-1.0 N UROB) Nitrite (test code = NIT) Negative Negative N Leuk Esterase (test code Small Negative A = LEUK) Micros Exam (test code = Indicated MEXAM) Epithelial Cells (test 3-5 /LPF 0-30 A code = EPI) WBC, Urine (test code = 3-5 /HPF 0-5 A UWBC) RBC, Urine (test code = None Seen /HPF 0-5 A URBC) Bacteria (test code = Occ /HPF BACT) CBC with [id number] 12:29:00 Test Item Value Reference Range Interpretation Comments WBC (test code = WBC) 4.4 K/cumm 4.4-10.5 N RBC (test code = RBC) 4.18 M/cumm 3.75-5.20 N Hemoglobin (test code = HGB) 12.5 gm/dL 12.2-14.8 N Hematocrit (test code = HCT) 37.8 % 36.5-44.4 N MCV (test code = MCV) 90.4 fL 80-100 N MCH (test code = MCH) 29.9 pg 27.0-32.5 N MCHC (test code = MCHC) 33.1 g/dL 32.0-37.5 N RDW (test code = RDW) 15.4 % 11.5-14.5 H Platelet Count (test code = 254 K/cumm 140-440 N PLTCT) MPV (test code = MPV) 7.7 fL Diff Method (test code = DIFFM) Auto Neutrophil (test code = NEUT) 60.7 % 36-70 N Lymphocyte (test code = LYMPH) 31.7 % 12-44 N Monocyte (test code = MONO) 5.9 % 0-11 N Eosinophil (test code = EOS) 1.1 % 0-7 N Basophil (test code = BASO) 0.6 % 0-2 N Neutro Abs (test code = ANEUT) 2.7 K/cumm 1.6-7.4 N Lymph Abs (test code = ALYMPH) 1.4 K/cumm 0.5-4.6 N Crockett Abs (test code = AMONO) 0.3 K/cumm 0.0-1.2 N Eos Abs (test code = AEOS) 0.05 K/cumm 0.00-0.74 N Baso Abs (test code = ABASO) 0.0 K/cumm 0.00-0.21 N
[2022-08-31 18:53] LABS: Urine Blood 1+ (Negative); Urine Glucose Negative (Negative); Urine Protein Negative (Negative); Urine Specific Gravity 1.025 (1.005-1.030)
[2022-08-31] MEDS ORDERED: ONDANSETRON 4 MG/2 ML VIAL ONE (18:57)
[2022-08-31] MEDS ORDERED: KETOROLAC 30 MG/ML INJ ONE (18:57)
[2022-08-31 19:11] LABS: Absolute Lymphocytes (CBC) 2.1 K/uL (0.7-4.9); Hematocrit 39.5 % (36.0-45.0); Lymphocytes % 37.9 % (15.3-44.8); MCV 93.2 fL (80-100); MPV 8.4 fL (7.6-11.3); RBC Red Blood Cell Count 4.24 M/uL (3.86-4.86)
[2022-08-31 19:14] LABS: Potassium 3.7 mmol/L (3.5-5.1)
--- NOTE | 2022-08-31 19:38 | RAD REPORT ---
EXAM DESCRIPTION: CT - Abdomen Pelvis Wo Contrast - 08/31/2022 7:20 pm CLINICAL HISTORY: Abdominal pain. Flank pain COMPARISON: No comparisons TECHNIQUE: CT imaging of the abdomen and pelvis was performed without contrast. Solid organ, bowel a nd vascular assessment is limited due to lack of IV and oral contrast. All CT scans are performed using dose optimization technique as appropriate and may include automated exposure control or mA/KV adjustment according to patient size. FINDINGS: The lower lung gillette are clear.Cholecystectomy clips. The liver, spleen, pancreas, adrenal glands are within normal limits for a limited non-contrast exami nation.Small calculi are present in both kidneys without hydronephrosis. No bowel obstruction, free air, free fluid or abscess. The appendix is normal. 3 cm left ovarian fol licle. The osseous structures are within normal limits. IMPRESSION: Small stones are present in the calices both kidneys without hydronephrosis. A limited non-contrast examination was performed as detailed.
[2022-08-31 20:08] LABS: Urine Specific Gravity/Preg 1.025 (1.005-1.030)
--- NOTE | 2022-08-31 20:11 | EDPHYS ---
Physician Documentation [facility] Name: Nicole Orantes Age: 27 yrs Sex: Female : 1995 Arrival Date: 08/31/2022 Time: 18:19 Bed 25 Private MD: ED Physician Parisa Vital HPI: 08/31 18:30 This 27 yrs old Female presents to ER via Unassigned with complaints of Back ms3 Pain. 18:30 The patient presents with pain that is acute, with no known mechanism of injury. ms3 18:30 27-year-old female with no past medical history presents for left flank pain that began ms3 1 month prior to arrival. Patient states the pain is a 10/10 described as stabbing. Patient denies fevers, chills, dysuria, urgency, or urinary frequency. Patient endorses nausea. Patient notes her mother has kidney stones.. 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 - Social history:: Smoking status: Patient denies any tobacco usage or history of. ROS: 18:30 Constitutional: Negative for fever, and chills. Neck: Negative for injury, pain, and ms3 swelling, Cardiovascular: Negative for chest pain, and palpitations. 18:30 Abdomen/GI: Positive for 18:30 Back: Positive for flank pain, on the left. 18:30 All other systems are negative. Exam: 18:30 Head/Face: Normocephalic, atraumatic. Neck: Trachea midline, no cervical ms3 lymphadenopathy. Supple, full range of motion without nuchal rigidity, or vertebral point tenderness. No Meningismus. Chest/axilla: Normal chest wall appearance and motion. Nontender with no deformity. Cardiovascular: Regular rate and rhythm with a normal S1 and S2. No gallops, murmurs, or rubs. Normal PMI, no JVD. No pulse deficits. Respiratory: Lungs have equal breath sounds bilaterally, clear to auscultation and percussion. No rales, rhonchi or wheezes noted. No increased work of breathing, no retractions or nasal flaring. Abdomen/GI: Soft, non-tender, with normal bowel sounds. No distension or tympany. No guarding or rebound. No evidence of tenderness throughout. 18:30 Constitutional: The patient appears alert, awake, non-diaphoretic, non-toxic, well hydrated, well groomed, well nourished, in obvious pain. 18:30 Back: CVA tenderness, that is moderate, is noted bilaterally, left greater than right. Vital Signs: 18:28 BP 133 / 88; Pulse 95; Resp 17; Temp 99.5; Pulse Ox 100% ; Weight 54.43 kg; Height 5 ll1 ft. 2 in. (157.48 cm); Pain 10/10; 19:24 BP 101 / 70; Pulse 66; Resp 18; Pulse Ox 100% on R/A; mb9 20:24 BP 105 / 84; Pulse 74; Resp 16; Pulse Ox 100% on R/A; mb9 18:28 Body Mass Index 21.95 (54.43 kg, 157.48 cm) ll1 MDM: 18:30 Patient medically screened. ms3 18:30 Differential diagnosis: nephrolithiasis, pyelonephritis, UTI. ms3 20:07 Data reviewed: lab test result(s), radiologic studies. sd2 20:08 Transition of care: Care assumed from Aj Hummel DO. ED course: Labs and imaging sd2 reviewed. Labs grossly WNCL. UA without infection. UPT negative. CTAP with no evidence of acute abnormality. Stones present within the renal calyces without evidence of obstruction or hydronephrosis. pain has been ongoing for 1 month and worsens throughout the day associated with movement. Suspect MSK etiology. Will place on NSAIDs and muscle relaxers. Pt has scheduled follow up with PCP on Sunday. Verbalizes understanding of discharge plan and strict return precautions.. 08/31 18:30 Order name: CBC with Diff; Complete Time: 19:35 ms3 08/31 18:30 Order name: BMP; Complete Time: 19:35 ms3 08/31 18:30 Order name: CT Abd/Pelvis - Without Contrast; Complete Time: 19:48 ms3 08/31 18:53 Order name: Urine Dipstick-Ancillary; Complete Time: 19:08 EDMS 08/31 18:54 Order name: Urine --Ancillary (enter results); Complete Time: 20:19 bd 08/31 18:30 Order name: IV Saline Lock; Complete Time: 18:52 ms3 08/31 18:30 Order name: Labs collected and sent; Complete Time: 18:53 ms3 08/31 18:30 Order name: Urine Dipstick-Ancillary (obtain specimen); Complete Time: 18:53 ms3 08/31 18:30 Order name: Urine Test (obtain specimen); Complete Time: 18:53 ms3 Administered Medications: 18:54 Drug: Zofran (Ondansetron) 4 mg Route: IVP; Site: left antecubital; mb9 19:25 Follow up: Response: No adverse reaction mb9 18:58 Drug: TORadol - (ketorolac) 15 mg Route: IVP; Site: left antecubital; mb9 19:25 Follow up: Response: No adverse reaction mb9 Disposition Summary: 08/31/22 20:10 Discharge Ordered Location: Home sd2 Problem: an ongoing problem sd2 Symptoms: have improved sd2 Condition: Stable sd2 Diagnosis - Low back pain sd2 Followup: sd2 - With: Private Physician - When: 2 - 3 days - Reason: Recheck today's complaints, Continuance of care, Re-evaluation by your physician Discharge Instructions: - Discharge Summary Sheet sd2 - Acute Back Pain, Adult sd2 Forms: - Medication Reconciliation Form sd2 - Thank You Letter sd2 - Antibiotic Education sd2 - Prescription Opioid Use sd2 - Work release form mb9 Prescriptions: - Anaprox DS 550 mg Oral Tablet - take 1 tablet by ORAL route every 12 hours As needed; 20 tablet; Refills: 0, sd2 Product Selection Permitted - methocarbamol 750 mg Oral Tablet - take 1 tablet by ORAL route every 8 hours As needed; 15 tablet; Refills: 0, sd2 Product Selection Permitted Signatures: Dispatcher [employer] Salvador Marx RN RN ll1 Aj Hummel DO DO ms3 Parisa Vital MD MD sd2 Lauren Romero RN RN mb9
--- NOTE | 2022-08-31 20:11 | ER ---
Nurse's Notes [facility] Name: Nicole Orantes Age: 27 yrs Sex: Female : 1995 Arrival Date: 08/31/2022 Time: 18:19 Bed 25 Private MD: Diagnosis: Low back pain Presentation: 08/31 18:28 Chief complaint: Patient states: L back pain for 1 month. + nausea at times. Has been ll1 seen 3 times since March for similar pains. Coronavirus screen: Vaccine status: Patient reports receiving the 2nd dose of the covid vaccine. Client denies travel out of the [place] in the last 14 days. At this time, the client does not indicate any symptoms associated with coronavirus-19. Ebola Screen: Patient denies travel to an Ebola-affected area in the 21 days before illness onset. Initial Sepsis Screen: Does the patient meet any 2 criteria? No. Patient's initial sepsis screen is negative. Does the patient have a suspected source of infection? No. Patient's initial sepsis screen is negative. Risk Assessment: Do you want to hurt yourself or someone else? Patient reports no desire to harm self or others. Onset of symptoms was July 31, 2022. 18:28 Method Of Arrival: Ambulatory ll1 18:28 Acuity: SUSANA 3 ll1 Triage Assessment: 18:30 General: Appears in no apparent distress. Behavior is calm, cooperative, appropriate ll1 for age. Pain: Complains of pain in back Quality of pain is described as aching. Musculoskeletal: Circulation, motion, and sensation intact. Capillary refill < 3 seconds. 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 - Social history:: Smoking status: Patient denies any tobacco usage or history of. Screenin:25 [facility] ED Fall Risk Assessment (Adult) History of falling in the last 3 months, mb9 including since admission No falls in past 3 months (0 pts) Confusion or Disorientation No (0 pts) Intoxicated or Sedated No (0 pts) Impaired Gait No (0 pts) Mobility Assist Device Used No (0 pt) Altered Elimination No (0 pt) Score/Fall Risk Level 0 - 2 = Low Risk Oriented to surroundings, Maintained a safe environment. Abuse screen: Denies threats or abuse. Nutritional screening: No deficits noted. Tuberculosis screening: No symptoms or risk factors identified. Assessment: 18:58 General: Appears in no apparent distress. comfortable, Behavior is calm, cooperative, mb9 appropriate for age. Neuro: Mcrae Agitation-Sedation Scale (RASS): 0 - Alert and Calm Level of Consciousness is awake, alert, obeys commands, Oriented to person, place, time, situation, Appropriate for age. Cardiovascular: Rhythm is regular. Respiratory: Airway is patent Respiratory effort is even, unlabored, Respiratory pattern is regular, symmetrical, Breath sounds are clear bilaterally. GI: Abdomen is flat, non-distended, Bowel sounds present X 4 quads. Reports nausea. : Urine is clear. EENT: No signs and/or symptoms were reported regarding the EENT system. Derm: Skin is pink, warm \T\ dry. Musculoskeletal: Range of motion: intact in all extremities, Swelling absent Reports pain in back since 1 month ago. 19:18 Reassessment: pt taken to CT via wheelchair. mb9 20:24 Reassessment: No changes from previously documented assessment. Neuro: Level of mb9 Consciousness is awake, alert, obeys commands. Respiratory: Airway is patent. Derm: Skin is pink, warm \T\ dry. Vital Signs: 18:28 BP 133 / 88; Pulse 95; Resp 17; Temp 99.5; Pulse Ox 100% ; Weight 54.43 kg; Height 5 ll1 ft. 2 in. (157.48 cm); Pain 10/10; 19:24 BP 101 / 70; Pulse 66; Resp 18; Pulse Ox 100% on R/A; mb9 20:24 BP 105 / 84; Pulse 74; Resp 16; Pulse Ox 100% on R/A; mb9 18:28 Body Mass Index 21.95 (54.43 kg, 157.48 cm) ll1 ED Course: 18:19 Patient arrived in ED. mr 18:19 Aj Hummel DO is Attending Physician. ms3 18:27 Arm band placed on. ll1 18:27 Placed in gown. Bed in low position. Call light in reach. Side rails up X 1. Client mb9 placed on continuous cardiac and pulse oximetry monitoring. NIBP monitoring applied. 18:30 Triage completed. ll1 18:37 Lauren Romero, RN is Primary Nurse. mb9 18:45 Inserted saline lock: 20 gauge in left antecubital area, using aseptic technique. Blood mb9 collected. 18:53 BMP Sent. mb9 18:53 CBC with Diff Sent. mb9 19:08 Attending Physician role handed off by Aj Hummel DO sd2 19:08 Parisa Vital MD is Attending Physician. sd2 19:21 CT Abd/Pelvis - Without Contrast In Process Unspecified. EDMS 19:25 No provider procedures requiring assistance completed. mb9 20:23 IV discontinued, intact, bleeding controlled, No redness/swelling at site. Pressure mb9 dressing applied. Administered Medications: 18:54 Drug: Zofran (Ondansetron) 4 mg Route: IVP; Site: left antecubital; mb9 19:25 Follow up: Response: No adverse reaction mb9 18:58 Drug: TORadol - (ketorolac) 15 mg Route: IVP; Site: left antecubital; mb9 19:25 Follow up: Response: No adverse reaction mb9 Medication: 19:25 VIS not applicable for this client. mb9 Outcome: 20:10 Discharge ordered by . sd2 20:23 Discharged to home ambulatory. mb9 20:23 Condition: stable 20:23 Discharge instructions given to patient, Instructed on discharge instructions, follow up and referral plans. Demonstrated understanding of instructions, follow-up care, medications, Prescriptions given X 2. 20:24 Patient left the ED. mb9 Signatures: Dispatcher [employer] Lauren Godinez Salvador Olsen, RN RN ll1 Aj Hummel DO DO ms3 Parisa Vital MD MD me2 Lauren Romero, JUDE RN [email or web address]
[2022-08-31 20:47] VITALS: TEMP 99.5; O2SAT 100
[2022-08-31 20:54] VITALS: BP 105/84
== END 2022-08-31 20:24 | disposition home or self-care (01) ==
LOC: ER 18:16
DX: M54.50 Low back pain, unspecified (principal); R11.0 Nausea
CPT/HCPCS: 85025; 80048; 36415; 81025; 81003; 74176; 96375; 96374; 99284; J2405